=== PATIENT | female | born 1960 | race Caucasian/White ===

== ENCOUNTER 2019-03-09 06:49 | Inpatient (IN) ==
--- NOTE | 2019-03-09 07:19 | Emergency Department Note ---
Disposition Clinical Impression: Pyelonephritis, Elevated troponin, EVENS (acute kidney injury) Disposition: Admitted As Inpatient Condition: Good Time of Disposition: 09:48 General Adult HPI - General Chief complaint: ED Weakness Stated complaint: Leg Weakness Time Seen by Provider: 03/09/19 06:52 Source: EMS Limitations: no limitations Nursing Notes Reviewed: Yes Vital Signs Reviewed: Yes - History of Present Illness HPI Narrative: 58 year old female with a history of diabetes presents with right leg pain and weakness since yesterday. Patient stated her left arm also felt pain. Patient's stated patient was sitting on the floor this morning. Patient stated she slid to the floor from toilet. Pt denied hit her head. No LOC. Patient stated she felt too weak to stand up. Pt had lower back surgery. Pt denied incontinency of urinating or marla movement. Patient has a history of diabetes. She is on insulin. Patient stated that she has not checked her blood sugar for a while. Onset (ago): day(s) (1) Location: lower extremity Pain Scale: 8 - Related Data Home Medications Medication Instructions Recorded Confirmed Albuterol Sulfate [Albuterol 90 mcg IH Q4HR PRN 04/19/15 01/15/16 Inhaler] Ascorbic Acid [Vitamin C] 500 mg PO BID 04/19/15 03/09/19 Atorvastatin [Lipitor] 80 mg PO DAILY 04/19/15 01/15/16 Benztropine [Cogentin] 1 mg PO BID 04/19/15 03/09/19 Clopidogrel [Plavix] 75 mg PO DAILY 04/19/15 04/19/15 Ergocalciferol (VITAMIN D2) 50,000 unit PO 2XW 04/19/15 01/15/16 [Vitamin D2 (50,000 UNIT)] Escitalopram [Lexapro] 30 mg PO DAILY 04/19/15 03/09/19 Fenofibrate 145 mg PO DAILY 04/19/15 01/15/16 Ferrous Sulfate 325 mg PO BID 04/19/15 03/09/19 Haloperidol Decanoate [Haldol] 50 mg IJ Q14D 04/19/15 01/15/16 LORazepam [Ativan] 1 mg PO TID 04/19/15 01/15/16 Metformin HCl [Glucophage] 1,000 mg PO BID 04/19/15 03/09/19 Omeprazole [PriLOSEC] 20 mg PO DAILY 04/19/15 03/09/19 Pioglitazone HCl [Actos] 30 mg PO DAILY 04/19/15 01/15/16 Propranolol [Inderal] 20 mg PO TID 04/19/15 03/09/19 Quetiapine Fumarate [Seroquel] 100 mg PO HS 04/19/15 01/15/16 Previous Rx's Medication Instructions Recorded Aspirin Enteric Coated [Aspirin EC] 325 mg PO DAILY #20 tablet.dr 04/18/15 Furosemide [Lasix] 20 mg PO DAILY #3 tablet 11/18/15 Gabapentin [Neurontin] 300 mg PO BID #60 capsule 01/18/16 LORazepam [Ativan] 1 mg PO TID #30 tablet 01/18/16 Melatonin 9 mg PO HS tablet 01/18/16 OxyCODONE Immed Rel [Roxicodone 5 5 mg PO Q6HR PRN #30 tablet 01/18/16 MG] Allergies Allergy/AdvReac Type Severity Reaction Status Date / Time codeine AdvReac CONVULSIONS Verified 01/16/16 11:06 Constitutional: Denies: fever, chills Eyes: Denies: eye pain ENT ED: Denies: ear pain Cardiovascular: Denies: chest pain Respiratory: Denies: cough Gastrointestinal: Denies: abdominal pain, nausea, vomiting Genitourinary: Denies: urgency, dysuria, frequency Musculoskeletal: Reports: back pain Integumentary: Denies: rash Neurological: Denies: headache Psychiatric: Denies: anxiety Endocrine: Denies: fatigue Hematological/Lymphatic: Denies: easy bleeding Allergic/Immunologic: Denies: facial swelling Past Medical History - Past Medical History Medical history: Reports: diabetes Surgical history: Reports: cholecystectomy, hysterectomy, other Psychiatric history: Reports: anxiety, bipolar, depression TRUCK GUARD history: Reports: no TRUCK GUARD history - Social History Smoking Status: Current every day smoker Smokeless Tobacco Status: No Alcohol use: Reports: none Drug use: Reports: none Physical Exam - General General appearance: alert, in no apparent distress - Head Head exam: atraumatic, normocephalic - Eye Eye exam: Present: normal appearance - ENT ENT exam: normal exam - Neck Neck exam: Present: normal inspection - Chest Chest inspection: Present: normal inspection - Respiratory Respiratory exam: Present: normal lung sounds bilaterally - Cardiovascular Cardiovascular exam: Present: tachycardia - Abdominal Exam Abdominal exam: Present: soft, Non-Tender - Extremities Exam Extremities exam: Present: normal inspection, full ROM. Absent: tenderness - Back Exam Back exam: Present: normal inspection, full ROM, tenderness (Lumbar spine tender to palpation) - Neurological Exam Neurological exam: Present: alert, oriented X3, CN II-XII intact. Absent: motor sensory deficit - Psychiatric Psychiatric exam: Present: normal affect - Skin Skin exam: Present: warm, intact Course Vital Signs Temperature 98.7 F 03/09/19 06:52 Pulse Rate 100 03/09/19 06:52 Respiratory Rate 20 03/09/19 06:52 Blood Pressure 112/60 03/09/19 06:52 O2 Sat by Pulse Oximetry 93 03/09/19 06:52 Temperature 98.7 F 03/09/19 06:52 Pulse Rate 90 03/09/19 09:30 Respiratory Rate 18 03/09/19 10:27 Blood Pressure 118/67 03/09/19 10:27 O2 Sat by Pulse Oximetry 93 03/09/19 09:30 Oxygen Delivery Oxygen Delivery Room Air Medical Decision Making - [facility] Narrative Medical decision making narrative: 58 year old female presents generalized weakness, right lower leg pain and weakness, left arm pain. Patient slid from toilet to the floor this morning. No chest pain or shortness of breath. Physical exam: Patient seems fatigue, afebrile, tachycardia, abdomen soft no tender to palpation, bilateral lungs clear, lumbar spine tender to palpation. No focal neurology deficit. Head CT negative. Chest x-ray negative. Labs: White cell 15 elevated, creatinine 2.7 elevated, troponin 0.[address] elevation UA: Large amount of leukocyte and blood. 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 Impression : Pylonephritis , AK eye, elevated troponin. Dr. Hong spoke with urologist. Patient will be admitted to hospital with urology co nsult. Rocephin and IV fluids started in ED. - Lab Data Lab results reviewed: Yes I reviewed the patient's lab results. Result diagrams: 03/09/19 07:12 03/09/19 07:12 Lab Results 03/09/19 03/09/19 03/09/19 Range/Units 07:12 07:12 07:12 WBC 15.5 H (4.3-11.1) K/mcL RBC 3.67 L (3.82-4.97) M/mcL Hgb 10.9 L (11.5-15.4) g/dL Hct 31.7 L (35.3-44.9) % MCV 86.4 (83.0-100.0) fL MCH 29.7 (28.0-33.3) pg MCHC 34.4 (31.6-35.5) g/dL RDW 13.5 (11.5-14.5) % Plt Count 149 (140-400) K/mcL MPV 11.4 (9.4-12.4) fL Immature Gran % 1.3 (0-4) % Seg Neutrophils % 87.8 % Lymphocytes % 3.5 % Monocytes % 7.1 % Eosinophils % 0.1 % Basophils % 0.2 % Neutrophils # 13.6 H (1.6-8.9) K/mcL Lymphocytes # 0.6 (0.6-4.6) K/mcL Monocytes # 1.1 (0.0-1.3) K/mcL Eosinophils # 0.0 (0.0-0.6) K/mcL Basophils # 0.0 (0.0-0.2) K/mcL Sodium 127 L (136-145) mEq/L Potassium 3.3 L (3.5-5.1) mEq/L Chloride 91 L (98-107) mEq/L Carbon Dioxide 22 L (23-29) mEq/L BUN 72 H (8-23) mg/dL Creatinine 2.73 H (0.60-1.20) mg/dL Est GFR ( Amer) 22 L (> 60) Est GFR (Non-Af Amer) 18 L (> 60) BUN/Creatinine Ratio 26 (6-26) Glucose 274 H (70-105) mg/dL Calculated Osmolality 295 (280-300) Lactic Acid (0.5-2.2) mmol/L Calcium 8.8 (8.6-10.3) mg/dL Total Bilirubin 0.9 (0.3-1.0) mg/dL AST 26 (13-39) Units/L ALT 27 (7-52) Units/L Alkaline Phosphatase 118 H (34-104) Units/L Troponin I 0.09 H* (< 0.04) ng/mL B-Natriuretic Peptide 129 H (Less than 100) pg/mL Serum Total Protein 7.2 (6.4-8.9) g/dL Albumin 3.5 (3.5-5.7) g/dL Globulin 3.7 H (2.4-3.5) g/dL Albumin/Globulin Ratio 0.9 L (1.1-2.2) Urine Color (Yellow) Urine Clarity (Clear) Urine pH (5.0-8.0) pH Units Ur Specific [place] (1.010-1.025) Urine Protein (Neg-Trace) mg/dL Urine Glucose (UA) (Normal) mg/dL Urine Ketones (Negative) mg/dL Urine Blood (Negative) Urine Nitrite (Negative) Urine Bilirubin (Negative) Urine Urobilinogen (Normal) mg/dL Ur Leukocyte Esterase (Negative) Urine Microscopic RBC (0-3) per hpf Urine Microscopic WBC (0-3) per hpf Ur Squamous Epith Cells (None-Few) per lpf Urine Bacteria (None-Few) per hpf Hyaline Casts (None-Few) per lpf Urine Yeast (None Seen) per hpf Ur Culture Indicated? (NO) 03/09/19 03/09/19 Range/Units 07:35 08:14 WBC (4.3-11.1) K/mcL RBC (3.82-4.97) M/mcL Hgb (11.5-15.4) g/dL Hct (35.3-44.9) % MCV (83.0-100.0) fL MCH (28.0-33.3) pg MCHC (31.6-35.5) g/dL RDW (11.5-14.5) % Plt Count (140-400) K/mcL MPV (9.4-12.4) fL Immature Gran % (0-4) % Seg Neutrophils % % Lymphocytes % % Monocytes % % Eosinophils % % Basophils % % Neutrophils # (1.6-8.9) K/mcL Lymphocytes # (0.6-4.6) K/mcL Monocytes # (0.0-1.3) K/mcL Eosinophils # (0.0-0.6) K/mcL Basophils # (0.0-0.2) K/mcL Sodium (136-145) mEq/L Potassium (3.5-5.1) mEq/L Chloride (98-107) mEq/L Carbon Dioxide (23-29) mEq/L BUN (8-23) mg/dL Creatinine (0.60-1.20) mg/dL Est GFR ( Amer) (> 60) Est GFR (Non-Af Amer) (> 60) BUN/Creatinine Ratio (6-26) Glucose (70-105) mg/dL Calculated Osmolality (280-300) Lactic Acid 1.0 (0.5-2.2) mmol/L Calcium (8.6-10.3) mg/dL Total Bilirubin (0.3-1.0) mg/dL AST (13-39) Units/L ALT (7-52) Units/L Alkaline Phosphatase (34-104) Units/L Troponin I (< 0.04) ng/mL B-Natriuretic Peptide (Less than 100) pg/mL Serum Total Protein (6.4-8.9) g/dL Albumin (3.5-5.7) g/dL Globulin (2.4-3.5) g/dL Albumin/Globulin Ratio (1.1-2.2) Urine Color Yellow (Yellow) Urine Clarity Turbid A (Clear) Urine pH 5.5 (5.0-8.0) pH Units Ur Specific [place] 1.018 (1.010-1.025) Urine Protein 100 H (Neg-Trace) mg/dL Urine Glucose (UA) Normal (Normal) mg/dL Urine Ketones Negative (Negative) mg/dL Urine Blood Moderate H (Negative) Urine Nitrite Negative (Negative) Urine Bilirubin Negative (Negative) Urine Urobilinogen Normal (Normal) mg/dL Ur Leukocyte Esterase Large H (Negative) Urine Microscopic RBC 0-3 (0-3) per hpf Urine Microscopic WBC TNTC H (0-3) per hpf Ur Squamous Epith Cells Many H (None-Few) per lpf Urine Bacteria Many H (None-Few) per hpf Hyaline Casts Few (None-Few) per lpf Urine Yeast Few H (None Seen) per hpf Ur Culture Indicated? YES A (NO) - Radiology Data Radiology results reviewed: Yes I reviewed the patient's radiology results. EXAMINATION: CT OF THE ABDOMEN AND PELVIS WITHOUT CONTRAST 03/09/2019 8:48 am TECHNIQUE: CT of the abdomen and pelvis was performed without the administration of intravenous contrast. Multiplanar reformatted images are provided for review. Dose modulation, iterative reconstruction, and/or weight based adjustment of the mA/kV was utilized to reduce the radiation dose to as low as reasonably achievable. COMPARISON: 05/08/2008 HISTORY: ORDERING SYSTEM PROVIDED HISTORY: hematuria FINDINGS: Lower Chest: Unremarkable Organs: Liver, pancreas, and spleen are unremarkable. Cholecystectomy. GI/Bowel: No bowel obstruction. Appendix is normal. Pelvis: No bladder stone. No pelvic fluid collection. No adenopathy. Peritoneum/Retroperitoneum: No abdominal aortic aneurysm. Adrenal glands unremarkable. Perinephric stranding bilaterally, more prominent on the right. No ureteral stone. Mild inflammation surrounding the ureters bilaterally. Mild right hydronephrosis with somewhat abrupt narrowing at the UPJ. 2.0 x 1.8 cm right renal cyst. Bones/Soft Tissues: No acute bony abnormality. CT/CT abd pelvis wo no iv no oral IMPRESSION: No renal or ureteral stone. Mild perinephric stranding surrounding the kidneys bilaterally more prominent on the right as well as some inflammation surrounding the ureters bilaterally. Mild right hydronephrosis with up propped tapering at the right UPJ concerning for underlying stricture. This is new since the previous exam. Consider further evaluation with CT urogram. D/ / Marilynn Hdez MD / Marilynn Hdez MD Interpreting Provider: Marilynn Hdez MD R #: [id number] CT/CT head/brain wo con IMPRESSION: No acute intracranial abnormality. D/ / Marilynn Hdez MD / Marilynn Hdez MD Interpreting Provider: Marilynn Hdez MD INGS: Lungs are clear. No pleural effusion or pneumothorax. Normal cardiomediastinal silhouette and pulmonary vascularity. No acute osseous abnormality. XR/XR chest 1V portable IMPRESSION: No acute cardiopulmonary disease. D/ / Halle Oviedo MD / Halle Oviedo MD Interpreting Provider: Halle Oviedo MD
[2019-03-09 07:28] LABS: Basophils % 0.2 %; Eosinophils % 0.1 %; Hematocrit 31.7 % (35.3-44.9); Hemoglobin 10.9 g/dL (11.5-15.4); Immature Granulocytes % 1.3 % (0-4); Lymphocytes # 0.6 K/mcL (0.6-4.6); Lymphocytes % 3.5 %; Mean Corpuscular HGB Conc 34.4 g/dL (31.6-35.5); Mean Corpuscular Hemoglobin 29.7 pg (28.0-33.3); Mean Corpuscular Volume 86.4 fL (83.0-100.0); Mean Platelet Volume 11.4 fL (9.4-12.4); Monocytes # 1.1 K/mcL (0.0-1.3); Monocytes % 7.1 %; Neutrophils # 13.6 K/mcL (1.6-8.9); Platelet Count 149 K/mcL (140-400); Red Blood Count 3.67 M/mcL (3.82-4.97); Red Cell Distribution Width 13.5 % (11.5-14.5); Segmented Neutrophils % 87.8 %; White Blood Count 15.5 K/mcL (4.3-11.1)
[2019-03-09 07:47] LABS: Bilirubin,Urine Negative (Negative); Blood,Urine Moderate (Negative); Clarity,Urine Turbid (Clear); Color,Urine Yellow (Yellow); Glucose,Urine (UA) Normal (Normal); Ketones,Urine Negative (Negative); Leukocyte Esterase,Urine Large (Negative); Nitrite,Urine Negative (Negative); PH,Urine 5.5 pH Units (5.0-8.0); Protein,Urine 100 mg/dL (Neg-Trace); Specific Gravity,Urine 1.018 (1.010-1.025); Urobilinogen,Urine Normal (Normal)
[2019-03-09 07:49] LABS: Bacteria,Urine Many per hpf (None-Few); Hyaline Casts,Urine Few per lpf (None-Few); RBC,Urine 0-3 per hpf (0-3); Squamous Epithelial Cell,Urine Many per lpf (None-Few); WBC,Urine TNTC per hpf (0-3)
[2019-03-09 07:55] LABS: Albumin 3.5 g/dL (3.5-5.7); Albumin/Globulin Ratio 0.9 (1.1-2.2); Bilirubin,Total 0.9 mg/dL (0.3-1.0); Calcium 8.8 mg/dL (8.6-10.3); Globulin 3.7 g/dL (2.4-3.5); Potassium 3.3 mEq/L (3.5-5.1); Total Protein 7.2 g/dL (6.4-8.9); Troponin I 0.09 ng/mL (< 0.04)
[2019-03-09] MEDS ORDERED: 0.9 % Sodium Chloride 500 ML IVC ONE ×2 (07:57→09:11)
[2019-03-09] MEDS ORDERED: cefTRIAXone 1,000 MG in 0.9 % Sodium Chloride Mini Bag 100 ML IVPB ONE (08:04)
[2019-03-09] MEDS ORDERED: Aspirin 325 MG TABLET PO ONE (08:04)
[2019-03-09 08:06] LABS: Yeast,Urine Few per hpf (None Seen)
--- NOTE | 2019-03-09 09:19 | Emergency Department Note ---
Disposition Clinical Impression: Pyelonephritis, Elevated troponin, [place]ENS (acute kidney injury) Disposition: Admitted As Inpatient Condition: Good Referrals: Reynold Hamlin MD [Primary Care Provider] - Forms: ED Satisfaction Letter Time of Disposition: 09:17 General Adult HPI - General Chief complaint: ED Weakness Stated complaint: Leg Weakness Time Seen by Provider: 03/09/19 06:52 Source: EMS Limitations: no limitations - History of Present Illness Location: lower extremity Pain Scale: 8 - Related Data Home Medications Medication Instructions Recorded Confirmed Albuterol Sulfate [Albuterol 90 mcg IH Q4HR PRN 04/19/15 01/15/16 Inhaler] Ascorbic Acid [Vitamin C] 500 mg PO BID 04/19/15 03/09/19 Atorvastatin [Lipitor] 80 mg PO DAILY 04/19/15 01/15/16 Benztropine [Cogentin] 1 mg PO BID 04/19/15 03/09/19 Clopidogrel [Plavix] 75 mg PO DAILY 04/19/15 04/19/15 Ergocalciferol (VITAMIN D2) 50,000 unit PO 2XW 04/19/15 01/15/16 [Vitamin D2 (50,000 UNIT)] Escitalopram [Lexapro] 30 mg PO DAILY 04/19/15 03/09/19 Fenofibrate 145 mg PO DAILY 04/19/15 01/15/16 Ferrous Sulfate 325 mg PO BID 04/19/15 03/09/19 Haloperidol Decanoate [Haldol] 50 mg IJ Q14D 04/19/15 01/15/16 LORazepam [Ativan] 1 mg PO TID 04/19/15 01/15/16 Metformin HCl [Glucophage] 1,000 mg PO BID 04/19/15 03/09/19 Omeprazole [PriLOSEC] 20 mg PO DAILY 04/19/15 03/09/19 Pioglitazone HCl [Actos] 30 mg PO DAILY 04/19/15 01/15/16 Propranolol [Inderal] 20 mg PO TID 04/19/15 03/09/19 Quetiapine Fumarate [Seroquel] 100 mg PO HS 04/19/15 01/15/16 Previous Rx's Medication Instructions Recorded Aspirin Enteric Coated [Aspirin EC] 325 mg PO DAILY #20 tablet. 04/18/15 Furosemide [Lasix] 20 mg PO DAILY #3 tablet 11/18/15 Gabapentin [Neurontin] 300 mg PO BID #60 capsule 01/18/16 LORazepam [Ativan] 1 mg PO TID #30 tablet 01/18/16 Melatonin 9 mg PO HS tablet 01/18/16 OxyCODONE Immed Rel [Roxicodone 5 5 mg PO Q6HR PRN #30 tablet 01/18/16 MG] Allergies Allergy/AdvReac Type Severity Reaction Status Date / Time codeine AdvReac CONVULSIONS Verified 01/16/16 11:06 Past Medical History - Past Medical History Medical history: Reports: diabetes Surgical history: Reports: cholecystectomy, hysterectomy, other Psychiatric history: Reports: anxiety, bipolar, depression LEAD APPLICATION ARCHITECT history: Reports: no LEAD APPLICATION ARCHITECT history - Social History Smoking Status: Current every day smoker Smokeless Tobacco Status: No Alcohol use: Reports: none Drug use: Reports: none Physical Exam - General Limitations: no limitations General appearance: alert, in no apparent distress Course - Consultations Consultation #1: discussed case with urology and Dr. Rasmussen will see in consult. Time: 09:16 Consultation #2: discussed case with Dr. Del Rio and he will accept to medicine service. Time: 09:59 Vital Signs Temperature 98.7 F 03/09/19 06:52 Pulse Rate 100 03/09/19 06:52 Respiratory Rate 20 03/09/19 06:52 Blood Pressure 112/60 03/09/19 06:52 O2 Sat by Pulse Oximetry 93 03/09/19 06:52 Temperature 98.7 F 03/09/19 06:52 Pulse Rate 90 03/09/19 09:30 Respiratory Rate 16 03/09/19 09:30 Blood Pressure 119/76 03/09/19 09:30 O2 Sat by Pulse Oximetry 93 03/09/19 09:30 Oxygen Delivery Oxygen Delivery Room Air Medical Decision Making - Lab Data Result diagrams: 03/09/19 07:12 03/09/19 07:12 Lab Results 03/09/19 03/09/19 03/09/19 Range/Units 07:12 07:12 07:12 WBC 15.5 H (4.3-11.1) K/mcL RBC 3.67 L (3.82-4.97) M/mcL Hgb 10.9 L (11.5-15.4) g/dL Hct 31.7 L (35.3-44.9) % MCV 86.4 (83.0-100.0) fL MCH 29.7 (28.0-33.3) pg MCHC 34.4 (31.6-35.5) g/dL RDW 13.5 (11.5-14.5) % Plt Count 149 (140-400) K/mcL MPV 11.4 (9.4-12.4) fL Immature Gran % 1.3 (0-4) % Seg Neutrophils % 87.8 % Lymphocytes % 3.5 % Monocytes % 7.1 % Eosinophils % 0.1 % Basophils % 0.2 % Neutrophils # 13.6 H (1.6-8.9) K/mcL Lymphocytes # 0.6 (0.6-4.6) K/mcL Monocytes # 1.1 (0.0-1.3) K/mcL Eosinophils # 0.0 (0.0-0.6) K/mcL Basophils # 0.0 (0.0-0.2) K/mcL Sodium 127 L (136-145) mEq/L Potassium 3.3 L (3.5-5.1) mEq/L Chloride 91 L (98-107) mEq/L Carbon Dioxide 22 L (23-29) mEq/L BUN 72 H (8-23) mg/dL Creatinine 2.73 H (0.60-1.20) mg/dL Est GFR ( Amer) 22 L (> 60) Est GFR (Non-Af Amer) 18 L (> 60) BUN/Creatinine Ratio 26 (6-26) Glucose 274 H (70-105) mg/dL Calculated Osmolality 295 (280-300) Lactic Acid (0.5-2.2) mmol/L Calcium 8.8 (8.6-10.3) mg/dL Total Bilirubin 0.9 (0.3-1.0) mg/dL AST 26 (13-39) Units/L ALT 27 (7-52) Units/L Alkaline Phosphatase 118 H (34-104) Units/L Troponin I 0.09 H* (< 0.04) ng/mL B-Natriuretic Peptide 129 H (Less than 100) pg/mL Serum Total Protein 7.2 (6.4-8.9) g/dL Albumin 3.5 (3.5-5.7) g/dL Globulin 3.7 H (2.4-3.5) g/dL Albumin/Globulin Ratio 0.9 L (1.1-2.2) Urine Color (Yellow) Urine Clarity (Clear) Urine pH (5.0-8.0) pH Units Ur Specific [place] (1.010-1.025) Urine Protein (Neg-Trace) mg/dL Urine Glucose (UA) (Normal) mg/dL Urine Ketones (Negative) mg/dL Urine Blood (Negative) Urine Nitrite (Negative) Urine Bilirubin (Negative) Urine Urobilinogen (Normal) mg/dL Ur Leukocyte Esterase (Negative) Urine Microscopic RBC (0-3) per hpf Urine Microscopic WBC (0-3) per hpf Ur Squamous Epith Cells (None-Few) per lpf Urine Bacteria (None-Few) per hpf Hyaline Casts (None-Few) per lpf Urine Yeast (None Seen) per hpf Ur Culture Indicated? (NO) 03/09/19 03/09/19 Range/Units 07:35 08:14 WBC (4.3-11.1) K/mcL RBC (3.82-4.97) M/mcL Hgb (11.5-15.4) g/dL Hct (35.3-44.9) % MCV (83.0-100.0) fL MCH (28.0-33.3) pg MCHC (31.6-35.5) g/dL RDW (11.5-14.5) % Plt Count (140-400) K/mcL MPV (9.4-12.4) fL Immature Gran % (0-4) % Seg Neutrophils % % Lymphocytes % % Monocytes % % Eosinophils % % Basophils % % Neutrophils # (1.6-8.9) K/mcL Lymphocytes # (0.6-4.6) K/mcL Monocytes # (0.0-1.3) K/mcL Eosinophils # (0.0-0.6) K/mcL Basophils # (0.0-0.2) K/mcL Sodium (136-145) mEq/L Potassium (3.5-5.1) mEq/L Chloride (98-107) mEq/L Carbon Dioxide (23-29) mEq/L BUN (8-23) mg/dL Creatinine (0.60-1.20) mg/dL Est GFR ( Amer) (> 60) Est GFR (Non-Af Amer) (> 60) BUN/Creatinine Ratio (6-26) Glucose (70-105) mg/dL Calculated Osmolality (280-300) Lactic Acid 1.0 (0.5-2.2) mmol/L Calcium (8.6-10.3) mg/dL Total Bilirubin (0.3-1.0) mg/dL AST (13-39) Units/L ALT (7-52) Units/L Alkaline Phosphatase (34-104) Units/L Troponin I (< 0.04) ng/mL B-Natriuretic Peptide (Less than 100) pg/mL Serum Total Protein (6.4-8.9) g/dL Albumin (3.5-5.7) g/dL Globulin (2.4-3.5) g/dL Albumin/Globulin Ratio (1.1-2.2) Urine Color Yellow (Yellow) Urine Clarity Turbid A (Clear) Urine pH 5.5 (5.0-8.0) pH Units Ur Specific [place] 1.018 (1.010-1.025) Urine Protein 100 H (Neg-Trace) mg/dL Urine Glucose (UA) Normal (Normal) mg/dL Urine Ketones Negative (Negative) mg/dL Urine Blood Moderate H (Negative) Urine Nitrite Negative (Negative) Urine Bilirubin Negative (Negative) Urine Urobilinogen Normal (Normal) mg/dL Ur Leukocyte Esterase Large H (Negative) Urine Microscopic RBC 0-3 (0-3) per hpf Urine Microscopic WBC TNTC H (0-3) per hpf Ur Squamous Epith Cells Many H (None-Few) per lpf Urine Bacteria Many H (None-Few) per hpf Hyaline Casts Few (None-Few) per lpf Urine Yeast Few H (None Seen) per hpf Ur Culture Indicated? YES A (NO) Attestation Statement - Attestation Attestation: I reviewed the residents documentation and agree with the PA's assessment and plan of care. I have personally had face to face time with the patient. (Brief History, Brief Exam, and MDM) I personally supervised and was present for the rangel/critical portions of the following procedures completed by the resident: (add procedures performed here). 58 year old female presents to the ED with complaints of weakness when she got up this morning. It appears that she has a UTI and it extends into the pyelonephritis bilaterally worse on the right with UPJ strictures and a new [place] and elevated troponin. She othewrise denies chest pain and exertional dyspnea and does not have any new ischemic changes on eKG. Admit to medicine with urology consult
[2019-03-09] MEDS ORDERED: Naloxone 0.4 MG/ML INJ IVP PRN ×3 (09:53→16:35)
[2019-03-09] MEDS ORDERED: *HR* Promethazine 25 MG/ML VIAL IVP PRN (09:55)
[2019-03-09] MEDS ORDERED: Ondansetron ODT 4 MG TAB.RAPDIS SL PRN (09:55)
[2019-03-09] MEDS ORDERED: Ringers Solution, Lactated 1,000 ML IVC ONE ×2 (09:58→13:04)
[2019-03-09] MEDS ORDERED: *HR* OxyCODONE Immed Rel 5 MG TABLET PO PRN (09:58)
--- NOTE | 2019-03-09 11:08 | Internal Med History&Physical ---
Date of Encounter: 03/09/19 Time of Encounter: 10:59 Internal Medicine - H&P: HPI Chief complaint: Weakness Admitted From: Home Plans for Post Hospital Care: Home History of present illness: Ms. Barrientos is a 58 year old female with history of obesity, NIDDM Type II, HFpEF, and Bipolar disorder presents with lower extremity weakness. Patient says that for the last few days she has had generalized weakness and malaise. Says this got acutely worse yesterday and could barely walk to the bathroom. Says that no focal deficits but just hard to support herself because of generalized weakness and fatigue. Denies numbness or tingling. Was up to the bathroom and slouched over to the floor, prompting her to call EMS. Patient also experiencing urinary frequency but denies dysuria or hematuria. Denies abdominal pain, flank pain, nausea, or vomiting. Does have a cough but denies sputum production. Feels that she is dehydrated. Very little oral intake. Denies lightheadedness or dizziness. Past Med Surg Social Fam HX - Past Medical History Medical history: diabetes Additional medical history: HEART CATH. STRESS TEST. DM. SMOKER. TACHYCARDIA. FIBROMYALGIA. GERD. BIPOLAR. HTN. ARTHRITIS. DEPRESSION. ANXIETY Psychiatric history: anxiety, bipolar, depression - Past Surgical History Surgical History: cholecystectomy, hysterectomy, other Additional surgical history: EGD. COLONOSCOPY. GALLBLADDER. HYSTERECTOMY. BACK FUSION (LUMBAR). HEART CATH. CYST TAKEN OFF BACK - Social History Smoking Status: Current every day smoker Smokeless Tobacco Status: No Alcohol use: none Drug use: none Internal Medicine - H&P: Meds Aspirin Enteric Coated [Aspirin EC] 325 mg PO DAILY #20 tablet. 04/18/15 [Rx] Albuterol Sulfate [Albuterol Inhaler] 90 mcg IH Q4HR PRN 04/19/15 [History] Ascorbic Acid [Vitamin C] 500 mg PO BID 04/19/15 [History] Atorvastatin [Lipitor] 80 mg PO DAILY 04/19/15 [History] Benztropine [Cogentin] 1 mg PO BID 04/19/15 [History] Clopidogrel [Plavix] 75 mg PO DAILY 04/19/15 [History] Ergocalciferol (VITAMIN D2) [Vitamin D2 (50,000 UNIT)] 50,000 unit PO 2XW 04/19/15 [History] Escitalopram [Lexapro] 30 mg PO DAILY 04/19/15 [History] Fenofibrate 145 mg PO DAILY 04/19/15 [History] Ferrous Sulfate 325 mg PO BID 04/19/15 [History] Haloperidol Decanoate [Haldol] 50 mg IJ Q14D 04/19/15 [History] LORazepam [Ativan] 1 mg PO TID 04/19/15 [History] Metformin HCl [Glucophage] 1,000 mg PO BID 04/19/15 [History] Omeprazole [PriLOSEC] 20 mg PO DAILY 04/19/15 [History] Pioglitazone HCl [Actos] 30 mg PO DAILY 04/19/15 [History] Propranolol [Inderal] 20 mg PO TID 04/19/15 [History] Quetiapine Fumarate [Seroquel] 100 mg PO HS 04/19/15 [History] Furosemide [Lasix] 20 mg PO DAILY #3 tablet 11/18/15 [Rx] Gabapentin [Neurontin] 300 mg PO BID #60 capsule 01/18/16 [Rx] LORazepam [Ativan] 1 mg PO TID #30 tablet 01/18/16 [Rx] Melatonin 9 mg PO HS tablet 01/18/16 [Rx] OxyCODONE Immed Rel [Roxicodone 5 MG] 5 mg PO Q6HR PRN #30 tablet 01/18/16 [Rx] Allergy/AdvReac Type Severity Reaction Status Date / Time codeine AdvReac CONVULSIONS Verified 01/16/16 11:06 Review of systems: General: Fevers / Chills / Weight loss / Night sweats Eyes: Blurry Vision / Change in Vision HENT: Ear Pain / Ear Drainage / Rhinorrhea / Throat Pain / Lymphadenopathy Cardiovascular: Chest Pain / Palpatations / Orthopnea / GONZALEZ / Weight gain Lungs: Dyspnea / Wheezing / Cough / Sputum production / Pleurisy Abdomen: Abdomen pain / Abdominal distention / Nausea / Vomiting / Diarrhea / Const : Dysuria / Urinary Frequency / Urinary Urgency / Hematuria Extremities: LE edema / Ext pain / Ext erythema Skin: Rashes / Abrasions / Contusions Psych: Hallucinations / Anxiety / Depression Neuro: Weakness / Numbness / Tingling / Facial Droop / Dysphagia - Constitutional Vitals: Temp Pulse Resp BP Pulse Ox 98.7 F 90 18 118/67 93 03/09/19 06:52 03/09/19 09:30 03/09/19 10:27 03/09/19 10:27 03/09/19 09:30 Exam: General: Ill-appearing and in no acute distress HEENT: No erythema of posterior pharynx. No exudates. Lymphatics: No mandibular or cervical lymphadenopathy Cardiovascular: RRR. No murmurs. No chest wall tenderness. Lungs: Clear to auscelltation bilaterally. Regular chest rise. Abdomen: Non-tender. No rebound or gaurding. Nl bowel sounds. Extremities: No edema. 2+ pulses radial and pedal pulses Skin: No rahses, abrasions, or contusions. Nl cap refill. Psych: Nl attention. A&Ox3 Neuro: scientific research manager II-XII intact. 4/5 strength in BL LEs, 5/5 strength elsewhere. Sensation to light touch and pinprick intact. FNF and ROM intact. No PD. Internal Med - H&P Results - Labs CBC & Chem 7: 03/09/19 07:12 03/09/19 07:12 Labs: Short CBC 03/09/19 Range/Units 07:12 WBC 15.5 H (4.3-11.1) K/mcL Hgb 10.9 L (11.5-15.4) g/dL Hct 31.7 L (35.3-44.9) % Plt Count 149 (140-400) K/mcL Neutrophils # 13.6 H (1.6-8.9) K/mcL BMP 03/09/19 07:12 Sodium 127 L Potassium 3.3 L Chloride 91 L Carbon Dioxide 22 L BUN 72 H Creatinine 2.73 H Glucose 274 H Calcium 8.8 Cardiac Enzymes 03/09/19 Range/Units 07:12 Troponin I 0.09 H* (< 0.04) ng/mL Liver Function 03/09/19 Range/Units 07:12 Total Bilirubin 0.9 (0.3-1.0) mg/dL AST 26 (13-39) Units/L ALT 27 (7-52) Units/L Alkaline Phosphatase 118 H (34-104) Units/L Albumin 3.5 (3.5-5.7) g/dL Urine 03/09/19 Range/Units 07:35 Urine Color Yellow (Yellow) Urine Clarity Turbid A (Clear) Urine pH 5.5 (5.0-8.0) pH Units Ur Specific [place] 1.018 (1.010-1.025) Urine Protein 100 H (Neg-Trace) mg/dL Urine Glucose (UA) Normal (Normal) mg/dL - Impressions ITS Impressions Chest X-Ray 03/09/19 07:40 IMPRESSION: No acute cardiopulmonary disease. D/ / Halle Oviedo MD / Halle Dominique i, MD Interpreting Provider: Halle Oviedo MD Head CT 03/09/19 08:53 IMPRESSION: No acute intracranial abnormality. D/ / Marilynn Hdez MD / Marilynn Hdez MD Interpreting Provider: Marilynn Hdez MD Abdomen/Pelvis CT 03/09/19 08:55 IMPRESSION: No renal or ureteral stone. Mild perinephric stranding surrounding the kidneys bilaterally more prominent on the right as well as some inflammation surrounding the ureters bilaterally. Mild right hydronephrosis with up propped tapering at the right UPJ concerning for underlying stricture. This is new since the previous exam. Consider further evaluation with CT urogram. D/ / Marilynn Hdez MD / Marilynn Hdez MD Interpreting Provider: Marilynn Hdez MD - Assessment and Plan (1) Sepsis Current Visit: Yes Status: Acute Assessment and plan: Patient presents with generalized weakness in the setting of meeting sepsis criteria (WBC 15.5 and HR >90), generalized weakness on exam but no abdominal or CVA tenderness, UA with concern for infection, and CT with evidence of bilateral pyelonephritis and mild right hydronephrosis with tapering at the right UPJ concerning for underlying stricture. -Meets diagnostic criteria for bilateral pyelonephritis Initial concern for obstructive process given stricture, however, discussed with urology and believe this is probably chronic but will see patient Started on IVF and ceftriaxone in the ED and responding appropriately PLAN: - 30cc/kg IVF - Continue ceftriaxone - F/u blood and urine cultures - Urology to see patient and review imaging Qualifiers: Sepsis type: sepsis due to unspecified organism Sepsis acute organ dysfunction status: with acute organ dysfunction Severe sepsis acute organ dysfunction type: acute renal failure Acute renal failure type: with acute tubular necrosis Severe sepsis shock status: without septic shock Qualified Code(s): A41.9 - Sepsis, unspecified organism; R65.20 - Severe sepsis without septic shock; N17.0 - Acute kidney failure with tubular necrosis (2) Pyelonephritis Current Visit: Yes Status: Acute Assessment and plan: See above (3) Acute renal failure Current Visit: Yes Status: Acute Assessment and plan: Likely prerenal and intrarenal secondary to sepsis and acute pyelonephritis. Also concern for postobstructive process given structure but neurology believes this to be chronic. - IVF and treat infection - Urology consultation Qualifiers: Acute renal failure type: unspecified Qualified Code(s): N17.9 - Acute kidney failure, unspecified (4) NSTEMI (non-ST elevated myocardial infarction) Current Visit: Yes Status: Acute Assessment and plan: Likely demand ischemia in setting of pyelonephritis. Negative stress tests in 2015. - Trend trop - Will likely need repeat stress test on an outpatient basis (5) (HFpEF) heart failure with preserved ejection fraction Current Visit: Yes Status: Acute Assessment and plan: No echo on file but preserved EF evident on past stress test. - Hold Lasix in setting of acute renal failure Qualifiers: Heart failure chronicity: chronic Qualified Code(s): I50.32 - Chronic diastolic (congestive) heart failure (6) Bipolar 1 disorder Current Visit: No Status: Acute Assessment and plan: Continue home medications
[2019-03-09] MEDS ORDERED: Dextrose Gel 15 GM/37.5 ML TUBE PO PRN (13:23)
--- NOTE | 2019-03-09 15:30 | Urology - Consult Note ---
Date of Encounter: 03/09/19 Time of Encounter: 15:27 - Assessment and Plan (1) Bilateral hydronephrosis Current Visit: Yes Status: Acute Assessment and plan: Patient with mild bilateral hydronephrosis. I do not appreciate a significant UPJ obstruction. At this time would not recommend repeat imaging unless patient does not clinically improve. This is likely secondary to UTI with pyelonephritis. (2) [place] (acute kidney injury) Current Visit: Yes Status: Acute Assessment and plan: Patient serum creatinine markedly elevated above baseline. Unsure of etiology this time but could be related to dehydration. Continue with IV fluids and repeat serum creatinine tomorrow. If her serum fails to improve may need to perform cystoscopy and bilateral ureteral stent placement. (3) Pyelonephritis Current Visit: Yes Status: Acute Assessment and plan: Continue with broad-spectrum antimicrobial coverage until cultures return. We will continue to follow along closely. Urology CN:HPI Consult date: 03/09/19 Reason for consult Urology: Hydronephrosis Requesting physician: Magdiel Morales History of present illness: Mona is a 58-year-old female who presented to the emergency room secondary to overall weakness. Patient was found to have leukocytosis as well as elevated serum creatinine. CT scan was done which revealed bilateral mild hydronephrosis with changes consistent with bilateral pyelonephritis. Urinalysis was consistent with possible infection but was negative for nitrites. Patient was treated for recent UTI in January of this year. This was a finley sensitive Escherichia coli. She has had multiple separate UTIs over the past couple of years. Patient was scheduled to see me as an outpatient but failed to keep her appointment. Patient does admit to significant frequency. Past Med Surg Social Fam HX - Past Medical History Medical history: diabetes Additional medical history: HEART CATH. STRESS TEST. DM. SMOKER. TACHYCARDIA. FIBROMYALGIA. GERD. BIPOLAR. HTN. ARTHRITIS. DEPRESSION. ANXIETY Psychiatric history: anxiety, bipolar, depression - Past Surgical History Surgical History: cholecystectomy, hysterectomy, other Additional surgical history: EGD. COLONOSCOPY. GALLBLADDER. HYSTERECTOMY. BACK FUSION (LUMBAR). HEART CATH. CYST TAKEN OFF BACK - Social History Smoking Status: Current every day smoker Smokeless Tobacco Status: No Alcohol use: none Drug use: none - Family History Mother Name: Patient denies any family history of kidney stones. Medications and Allergies Aspirin Enteric Coated [Aspirin EC] 325 mg PO DAILY #20 tablet. 04/18/15 [Rx] Albuterol Sulfate [Albuterol Inhaler] 90 mcg IH Q4HR PRN 04/19/15 [History] Ascorbic Acid [Vitamin C] 500 mg PO BID 04/19/15 [History] Atorvastatin [Lipitor] 80 mg PO DAILY 04/19/15 [History] Benztropine [Cogentin] 1 mg PO BID 04/19/15 [History] Clopidogrel [Plavix] 75 mg PO DAILY 04/19/15 [History] Ergocalciferol (VITAMIN D2) [Vitamin D2 (50,000 UNIT)] 50,000 unit PO 2XW 04/19/15 [History] Escitalopram [Lexapro] 30 mg PO DAILY 04/19/15 [History] Fenofibrate 145 mg PO DAILY 04/19/15 [History] Ferrous Sulfate 325 mg PO BID 04/19/15 [History] Haloperidol Decanoate [Haldol] 50 mg IJ Q14D 04/19/15 [History] LORazepam [Ativan] 1 mg PO TID 04/19/15 [History] Metformin HCl [Glucophage] 1,000 mg PO BID 04/19/15 [History] Omeprazole [PriLOSEC] 20 mg PO DAILY 04/19/15 [History] Pioglitazone HCl [Actos] 30 mg PO DAILY 04/19/15 [History] Propranolol [Inderal] 20 mg PO TID 04/19/15 [History] Quetiapine Fumarate [Seroquel] 100 mg PO HS 04/19/15 [History] Furosemide [Lasix] 20 mg PO DAILY #3 tablet 11/18/15 [Rx] Gabapentin [Neurontin] 300 mg PO BID #60 capsule 01/18/16 [Rx] LORazepam [Ativan] 1 mg PO TID #30 tablet 01/18/16 [Rx] Melatonin 9 mg PO HS tablet 01/18/16 [Rx] OxyCODONE Immed Rel [Roxicodone 5 MG] 5 mg PO Q6HR PRN #30 tablet 01/18/16 [Rx] Allergy/AdvReac Type Severity Reaction Status Date / Time codeine AdvReac CONVULSIONS Verified 01/16/16 11:06 Review of Systems - Constitutional fatigue, malaise, no chills, no fever(s) - EENT Nose, mouth and throat: no dizziness - Cardiovascular no chest pain - Respiratory no cough, no dyspnea - Gastrointestinal no abdominal pain, no nausea, no vomiting - Genitourinary Genitourinary: as per HPI - Musculoskeletal no back pain - Integumentary no erythema, no swelling, no unusual bruising - Neurological no sensory deficit, no syncope - Psychiatric no anxiety, no confusion, no depression - Hematologic/Lymphatic no easy bruising, no lymphadenopathy - Allergic/Immunologic no wheezing Exam Initial Vital Signs Temp Pulse Resp BP Pulse Ox 98.7 F 100 20 112/60 93 03/09/19 06:52 03/09/19 06:52 03/09/19 06:52 03/09/19 06:52 03/09/19 06:52 General/Neuological: alert and oriented x 3 Eyes: normal pupils, non-icteric Neck: no lymphadenopathy noted, supple to touch Cardiovascular: RRR, no murmurs Respiratory: normal respiratory effort, clear bilaterally ABD: soft, nontender, no masses palpated, good bowel sounds Back: no pain on percussion bilaterally Skin: no rashes noted Musculoskeletal: normal gait, FROMx4 Urology Results - Labs 03/09/19 07:12 03/09/19 07:12 Abnormal lab results WBC 15.5 K/mcL (4.3-11.1) H 03/09/19 07:12 RBC 3.67 M/mcL (3.82-4.97) L 03/09/19 07:12 Hgb 10.9 g/dL (11.5-15.4) L 03/09/19 07:12 Hct 31.7 % (35.3-44.9) L 03/09/19 07:12 Neutrophils # 13.6 K/mcL (1.6-8.9) H 03/09/19 07:12 Sodium 127 mEq/L (136-145) L 03/09/19 07:12 Potassium 3.3 mEq/L (3.5-5.1) L 03/09/19 07:12 Chloride 91 mEq/L (98-107) L 03/09/19 07:12 Carbon Dioxide 22 mEq/L (23-29) L 03/09/19 07:12 BUN 72 mg/dL (8-23) H 03/09/19 07:12 Creatinine 2.73 mg/dL (0.60-1.20) H 03/09/19 07:12 Est GFR ( Amer) 22 (> 60) L 03/09/19 07:12 Est GFR (Non-Af Amer) 18 (> 60) L 03/09/19 07:12 Glucose 274 mg/dL (70-105) H 03/09/19 07:12 Alkaline Phosphatase 118 Units/L (34-104) H 03/09/19 07:12 Troponin I 0.09 ng/mL (< 0.04) H* 03/09/19 07:12 B-Natriuretic Peptide 129 pg/mL (Less than 100) H 03/09/19 07:12 Globulin 3.7 g/dL (2.4-3.5) H 03/09/19 07:12 Albumin/Globulin Ratio 0.9 (1.1-2.2) L 03/09/19 07:12 Urine Clarity Turbid (Clear) A 03/09/19 07:35 Urine Protein 100 mg/dL (Neg-Trace) H 03/09/19 07:35 Urine Blood Moderate (Negative) H 03/09/19 07:35 Ur Leukocyte Esterase Large (Negative) H 03/09/19 07:35 Urine Microscopic WBC TNTC per hpf (0-3) H 03/09/19 07:35 Ur Squamous Epith Cells Many per lpf (None-Few) H 03/09/19 07:35 Urine Bacteria Many per hpf (None-Few) H 03/09/19 07:35 Urine Yeast Few per hpf (None Seen) H 03/09/19 07:35 Ur Culture Indicated? YES (NO) A 03/09/19 07:35 Diabetes panel 03/09/19 Range/Units 07:12 Sodium 127 L (136-145) mEq/L Potassium 3.3 L (3.5-5.1) mEq/L Chloride 91 L (98-107) mEq/L Carbon Dioxide 22 L (23-29) mEq/L BUN 72 H (8-23) mg/dL Creatinine 2.73 H (0.60-1.20) mg/dL Glucose 274 H (70-105) mg/dL Calcium 8.8 (8.6-10.3) mg/dL AST 26 (13-39) Units/L ALT 27 (7-52) Units/L Alkaline Phosphatase 118 H (34-104) Units/L Albumin 3.5 (3.5-5.7) g/dL Calcium panel 03/09/19 Range/Units 07:12 Calcium 8.8 (8.6-10.3) mg/dL Albumin 3.5 (3.5-5.7) g/dL Pituitary panel 03/09/19 Range/Units 07:12 Sodium 127 L (136-145) mEq/L Potassium 3.3 L (3.5-5.1) mEq/L Chloride 91 L (98-107) mEq/L Carbon Dioxide 22 L (23-29) mEq/L BUN 72 H (8-23) mg/dL Creatinine 2.73 H (0.60-1.20) mg/dL Glucose 274 H (70-105) mg/dL Calcium 8.8 (8.6-10.3) mg/dL Adrenal panel 03/09/19 Range/Units 07:12 Sodium 127 L (136-145) mEq/L Potassium 3.3 L (3.5-5.1) mEq/L Chloride 91 L (98-107) mEq/L Carbon Dioxide 22 L (23-29) mEq/L BUN 72 H (8-23) mg/dL Creatinine 2.73 H (0.60-1.20) mg/dL Glucose 274 H (70-105) mg/dL Calcium 8.8 (8.6-10.3) mg/dL Total Bilirubin 0.9 (0.3-1.0) mg/dL AST 26 (13-39) Units/L ALT 27 (7-52) Units/L Alkaline Phosphatase 118 H (34-104) Units/L Albumin 3.5 (3.5-5.7) g/dL All other labs normal. - Imaging CT scan - abdomen: image reviewed CT scan - pelvis: image reviewed (CT scan was personally reviewed which reveals mild bilateral hydronephrosis. I do not appreciate a significant UPJ obstruction at this time.) Consult Discharge Plan - Plan Referrals: Reynold Hamlin MD [Primary Care Provider] -
[2019-03-09] MEDS: Insulin LISPRO 300 UNITS/3 ML VIAL SQ SCH ×3 (17:02→21:51)
[2019-03-09] MEDS: Nystatin POWDER 30 GM BOTTLE TP SCH ×2 (17:22→20:32)
[2019-03-09 21:54] LABS: Acinetobacter baumannii by PCR Not Detected (Not Detect); Candida albicans by PCR Not Detected (Not Detect); Candida krusei by PCR Not Detected (Not Detect); Enterobacter cloacae Cmplx PCR Not Detected (Not Detect); Enterococcus by PCR Not Detected (Not Detect); Escherichia coli by PCR DETECTED (Not Detect); Klebsiella oxytoca by PCR Not Detected (Not Detect); Klebsiella pneumoniae by PCR Not Detected (Not Detect); Proteus by PCR Not Detected (Not Detect); Pseudomonas aeruginosa by PCR Not Detected (Not Detect); Serratia marcescens by PCR Not Detected (Not Detect); Staphylococcus aureus by PCR Not Detected (Not Detect); Staphylococcus by PCR Not Detected (Not Detect); Streptococcus agalactiae(B)PCR Not Detected (Not Detect); Streptococcus by PCR Not Detected (Not Detect); Streptococcus pneumoniae PCR Not Detected (Not Detect); Streptococcus pyogenes (A) PCR Not Detected (Not Detect); blaKPC Carbapenem-Resist Gene Not Detected (Not Detect); mecA Methicillin-Resist Gene Not Detected (Not Detect); vanA/B Vancomycin-Resist Genes Not Detected (Not Detect)
[2019-03-09 21:55] LABS: Candida glabrata by PCR Not Detected (Not Detect); Candida parapsilosis by PCR Not Detected (Not Detect); Candida tropicalis by PCR Not Detected (Not Detect)
[2019-03-09] MEDS ORDERED: cefTRIAXone 2,000 MG in Water for inj. (sterile) 20 ML IVPB SCH (23:00)
[2019-03-10 04:38] LABS: Basophils % 0.1 %; Eosinophils # 0.1 K/mcL (0.0-0.6); Eosinophils % 0.5 %; Hemoglobin 10.1 g/dL (11.5-15.4); Immature Granulocytes % 4.8 % (0-4); Lymphocytes # 0.5 K/mcL (0.6-4.6); Lymphocytes % 4.5 %; Mean Corpuscular HGB Conc 32.6 g/dL (31.6-35.5); Mean Corpuscular Hemoglobin 29.2 pg (28.0-33.3); Mean Corpuscular Volume 89.6 fL (83.0-100.0); Mean Platelet Volume 11.5 fL (9.4-12.4); Monocytes # 1.1 K/mcL (0.0-1.3); Monocytes % 9.9 %; Neutrophils # 8.9 K/mcL (1.6-8.9); Platelet Count 134 K/mcL (140-400); Red Blood Count 3.46 M/mcL (3.82-4.97); Red Cell Distribution Width 13.7 % (11.5-14.5); Segmented Neutrophils % 80.2 %; White Blood Count 11.1 K/mcL (4.3-11.1)
[2019-03-10 04:55] LABS: Calcium 8.5 mg/dL (8.6-10.3)
--- NOTE | 2019-03-10 08:55 | Urology Progress Note ---
<Eva Isidro N - Last Filed: 03/10/19 08:52> Date of Encounter: 03/10/19 Time of Encounter: 08:00 - Assessment and Plan (1) [place] (acute kidney injury) Current Visit: Yes Status: Acute (2) Bilateral hydronephrosis Current Visit: Yes Status: Acute (3) Pyelonephritis Current Visit: Yes Status: Acute Assessment and plan: Patient is a 58-year-old female who presents with a history of bilateral pyelonephritis. Patient appears to be improving clinically. Vital signs are currently stable and afebrile. White blood cell count is reassuring, and serum creatinine is much improved to 1.74. Preliminary blood and urine cultures are positive for gram-negative rods. Patient had a pansensitive Escherichia coli urinary tract infection from 02/03/2019. She is currently receiving IV Rocephin. Progress Note Narrative: Patient seen and examined sitting upright in bed in no apparent distress. Patient reports feeling well with no new urologic concerns and states her appetite is returning. Patient believes she is emptying her bladder well without difficulty, and she denies any fever, chills, dysuria, gross hematuria or flank pain. Objective Initial Vital Signs Temp Pulse Resp BP Pulse Ox 98.7 F 100 20 112/60 93 03/09/19 06:52 03/09/19 06:52 03/09/19 06:52 03/09/19 06:52 03/09/19 06:52 - General physical appearance Present: no distress, no pain - Respiratory Present: normal expansion, normal respiratory effort - Abdomen Present: soft, non tender - Integumentary Present: no rash, no abnormal pigmentation - Musculoskeletal Present: normal posture - Psychiatric Present: oriented to time, oriented to person, oriented to place, speech is normal, memory intact - Labs 03/10/19 03:37 03/10/19 03:37 Diabetes panel 03/10/19 Range/Units 03:37 Sodium 130 L (136-145) mEq/L Potassium 3.0 L (3.5-5.1) mEq/L Chloride 96 L (98-107) mEq/L Carbon Dioxide 22 L (23-29) mEq/L BUN 51 H (8-23) mg/dL Creatinine 1.74 H (0.60-1.20) mg/dL Glucose 226 H (70-105) mg/dL Calcium 8.5 L (8.6-10.3) mg/dL Calcium panel 03/10/19 Range/Units 03:37 Calcium 8.5 L (8.6-10.3) mg/dL Pituitary panel 03/10/19 Range/Units 03:37 Sodium 130 L (136-145) mEq/L Potassium 3.0 L (3.5-5.1) mEq/L Chloride 96 L (98-107) mEq/L Carbon Dioxide 22 L (23-29) mEq/L BUN 51 H (8-23) mg/dL Creatinine 1.74 H (0.60-1.20) mg/dL Glucose 226 H (70-105) mg/dL Calcium 8.5 L (8.6-10.3) mg/dL Adrenal panel 03/10/19 Range/Units 03:37 Sodium 130 L (136-145) mEq/L Potassium 3.0 L (3.5-5.1) mEq/L Chloride 96 L (98-107) mEq/L Carbon Dioxide 22 L (23-29) mEq/L BUN 51 H (8-23) mg/dL Creatinine 1.74 H (0.60-1.20) mg/dL Glucose 226 H (70-105) mg/dL Calcium 8.5 L (8.6-10.3) mg/dL Consult Discharge Plan - Plan Referrals: Reynold Hamlin MD [Primary Care Provider] - <Peter Rasmussen - Last Filed: 03/10/19 16:16> Date of Encounter: 03/10/19 - Assessment and Plan (1) Bilateral hydronephrosis Current Visit: Yes Status: Acute (2) [place] (acute kidney injury) Current Visit: Yes Status: Acute (3) Pyelonephritis Current Visit: Yes Status: Acute Progress Note Narrative: Patient was seen and examined independently. I agree with the plan as written by Eva Isidro. At this point patient is feeling much better. Patient is on IV antibiotics for pyelonephritis. We will continue to follow at this time. Objective Initial Vital Signs Temp Pulse Resp BP Pulse Ox 98.7 F 100 20 112/60 93 03/09/19 06:52 03/09/19 06:52 03/09/19 06:52 03/09/19 06:52 03/09/19 06:52 - Labs 03/10/19 03:37 03/10/19 03:37 Diabetes panel 03/10/19 Range/Units 03:37 Sodium 130 L (136-145) mEq/L Potassium 3.0 L (3.5-5.1) mEq/L Chloride 96 L (98-107) mEq/L Carbon Dioxide 22 L (23-29) mEq/L BUN 51 H (8-23) mg/dL Creatinine 1.74 H (0.60-1.20) mg/dL Glucose 226 H (70-105) mg/dL Calcium 8.5 L (8.6-10.3) mg/dL Calcium panel 03/10/19 Range/Units 03:37 Calcium 8.5 L (8.6-10.3) mg/dL Pituitary panel 03/10/19 Range/Units 03:37 Sodium 130 L (136-145) mEq/L Potassium 3.0 L (3.5-5.1) mEq/L Chloride 96 L (98-107) mEq/L Carbon Dioxide 22 L (23-29) mEq/L BUN 51 H (8-23) mg/dL Creatinine 1.74 H (0.60-1.20) mg/dL Glucose 226 H (70-105) mg/dL Calcium 8.5 L (8.6-10.3) mg/dL Adrenal panel 03/10/19 Range/Units 03:37 Sodium 130 L (136-145) mEq/L Potassium 3.0 L (3.5-5.1) mEq/L Chloride 96 L (98-107) mEq/L Carbon Dioxide 22 L (23-29) mEq/L BUN 51 H (8-23) mg/dL Creatinine 1.74 H (0.60-1.20) mg/dL Glucose 226 H (70-105) mg/dL Calcium 8.5 L (8.6-10.3) mg/dL
[2019-03-10] MEDS: Insulin LISPRO 300 UNITS/3 ML VIAL SQ SCH ×4 (10:13→21:20)
[2019-03-10] MEDS: Nystatin POWDER 30 GM BOTTLE TP SCH ×3 (10:15→21:20)
[2019-03-10] MEDS: cefTRIAXone 2,000 MG in Water for inj. (sterile) 20 ML IVPB SCH (10:15)
--- NOTE | 2019-03-10 13:12 | Electrocardiograph Report ---
[place] [id number] Test Date: 2019-03-09 Pat Name: Mona Barrientos Department: EXAM2 Room: 3A22 Gender: F Skein Winder: : 1960 Requested By: Armen Condon Order Number: [id number] Reading MD: Jose Alfredo Mandujano Measurements Intervals [place] Rate: 100 P: 51 NM: 168 QRS: 7 QRSD: 95 T: 34 QT: 342 QTc: 442 Interpretive Statements Sinus tachycardia Low voltage, precordial leads Electronically Signed On 03-10-2019 13:11:20 EDT by Jose Alfredo Mandujano
--- NOTE | 2019-03-10 13:13 | Internal Med Progress Note ---
Hospitalist Progress Note - Encounter Date of Encounter: 03/10/19 Time of Encounter: 13:23 - Subjective Interval History: Patient was seen and examined at bedside today. In initially presented to the hospital complaining of weakness. Patient still reported weakness. Patient denied any fever and chills. Initial workup was significant for UTI and pyelo nephritis. Patient denies any back pain. - Exam Vitals: Temp Pulse Resp BP Pulse Ox 99.4 F 95 18 137/80 93 03/10/19 10:02 03/10/19 10:02 03/10/19 10:02 03/10/19 10:02 03/10/19 10:02 Exam: General: Ill-appearing and in no acute distress Cardiovascular: RRR. No murmurs. No chest wall tenderness. Lungs: Clear to auscelltation bilaterally. Regular chest rise. Abdomen: Non-tender. No rebound or gaurding. Nl bowel sounds. Extremities: No edema. 2+ pulses radial and pedal pulses Skin: No rahses, abrasions, or contusions. Nl cap refill. Psych: A&Ox3, no auditory and visual hallucination. - Assessment and Plan (1) Sepsis Current Visit: Yes Status: Acute Assessment and Plan: Patient understood to the hospital with complaint of weakness. Initial evaluation was positive for sepsis likely due to pyelonephritis. Patient had a CT abdomen and pelvis done which showed bilateral perinephric stranding more prominent on the right side. CT also showed inflammation surrounding the ureters bilaterally. Urology consult placed for mild right-sided hydronephrosis. Appreciate urology recommendation. No surgical intervention at this time. - Continue IV hydration - Continue Rocephin - Patient's initial blood culture and urine culture showed gram-negative abbe. Will await final report. (2) Pyelonephritis Current Visit: Yes Status: Acute Assessment and Plan: Management as above (3) Acute renal failure Current Visit: Yes Status: Acute Assessment and Plan: Likely likely etiology would be both prerenal plus internal in the setting of pyelonephritis and sepsis. Patient has responded well to fluid resuscitation. Creatinine is down trending to 1.7 today. We will continue IV hydration. BMP tomorrow. (4) (HFpEF) heart failure with preserved ejection fraction Current Visit: Yes Status: Acute Assessment and Plan: Hold Lasix in setting of acute renal failure (5) Elevated troponin Current Visit: Yes Status: Acute Assessment and Plan: Pt had a mild elevation of troponin in the setting of UTI. Denied any chest pain. Most likely mild elevation is due to a EVENS. EKG showed normal sinus rhythm with nonspecific T-wave abnormality. No ischemic changes noted. (6) Bipolar 1 disorder Current Visit: No Status: Acute Assessment and Plan: Continue home medications. (7) Schizophrenia in remission Current Visit: Yes Status: Acute Assessment and Plan: Patient's home medication regimen reviewed. Patient is currently on Haldol IM every other week and Invega IM every 4 weeks. Patient recently got both medication. Continue home Cogentin to avoid any extrapyramidal side effects. No signs of acute psychosis noted on exam. (8) Diabetes Current Visit: No Status: Acute Assessment and Plan: Continue sliding-scale insulin. (9) Obesity Current Visit: No Status: Chronic Assessment and Plan: BMI more than 35. Advised on diet modifications. DVT Prophylaxis: EPCD - Time Spent with Patient Total time spent is greater than 50% in coordination of care (as documented) at patient's floor/unit and/or counseling patient: 25 - 35 minutes Plan of Care Discussed with: patient Internal Medicine: Result - Labs CBC & Chem 7: 03/10/19 03:37 03/10/19 03:37 Labs: Short CBC 03/10/19 Range/Units 03:37 WBC 11.1 (4.3-11.1) K/mcL Hgb 10.1 L (11.5-15.4) g/dL Hct 31.0 L (35.3-44.9) % Plt Count 134 L (140-400) K/mcL Neutrophils # 8.9 (1.6-8.9) K/mcL BMP 03/10/19 03:37 Sodium 130 L Potassium 3.0 L Chloride 96 L Carbon Dioxide 22 L BUN 51 H Creatinine 1.74 H Glucose 226 H Calcium 8.5 L Cardiac Enzymes 03/09/19 03/09/19 Range/Units 15:29 22:19 Troponin I 0.08 H* 0.04 H* (< 0.04) ng/mL Consult Discharge Plan - Plan Referrals: Reynold Hamlin MD [Primary Care Provider] - (1) Sepsis Qualifiers: Sepsis type: sepsis due to unspecified organism Sepsis acute organ dysfunction status: with acute organ dysfunction Severe sepsis acute organ dysfunction type: acute renal failure Acute renal failure type: with acute tubular necrosis Severe sepsis shock status: without septic shock Qualified Code(s): A41.9 - Sepsis, unspecified organism; R65.20 - Severe sepsis without septic shock; N17.0 - Acute kidney failure with tubular necrosis (3) Acute renal failure Qualifiers: Acute renal failure type: unspecified Qualified Code(s): N17.9 - Acute kidney failure, unspecified (4) (HFpEF) heart failure with preserved ejection fraction Qualifiers: Heart failure chronicity: chronic Qualified Code(s): I50.32 - Chronic diastolic (congestive) heart failure (8) Diabetes Qualifiers: Diabetes mellitus type: type 2 Diabetes mellitus machine long goods helper insulin use: without machine long goods helper use Diabetes mellitus complication status: without complication Qualified Code(s): E11.9 - Type 2 diabetes mellitus without complications (9) Obesity Qualifiers: Obesity type: due to excess calories Qualified Code(s): E66.09 - Other obesity due to excess calories
[2019-03-10] MEDS: 0.9 % Sodium Chloride 1,000 ML IVC SCH (14:31)
[2019-03-11] MEDS: 0.9 % Sodium Chloride 1,000 ML IVC SCH (00:41)
[2019-03-11 04:24] LABS: Hematocrit 31.2 % (35.3-44.9); Hemoglobin 10.3 g/dL (11.5-15.4); Mean Corpuscular Hemoglobin 29.3 pg (28.0-33.3); Mean Corpuscular Volume 88.6 fL (83.0-100.0); Mean Platelet Volume 11.2 fL (9.4-12.4); Platelet Count 169 K/mcL (140-400); Red Blood Count 3.52 M/mcL (3.82-4.97); Red Cell Distribution Width 13.9 % (11.5-14.5); White Blood Count 13.6 K/mcL (4.3-11.1)
[2019-03-11 04:40] LABS: Calcium 8.7 mg/dL (8.6-10.3); Potassium 3.2 mEq/L (3.5-5.1)
[2019-03-11 05:34] LABS: Lymphocytes # 1.1 K/mcL (0.6-4.6); Monocytes # 0.8 K/mcL (0.0-1.3); Neutrophils # 11.7 K/mcL (1.6-8.9); Platelet Estimate Normal (Normal)
[2019-03-11 07:44] VITALS: BP 149/80
[2019-03-11] MEDS: Insulin LISPRO 300 UNITS/3 ML VIAL SQ SCH (08:17)
[2019-03-11] MEDS: Nystatin POWDER 30 GM BOTTLE TP SCH (08:17)
--- NOTE | 2019-03-11 08:33 | Urology Progress Note ---
<Eva Isidro N - Last Filed: 03/11/19 08:31> Date of Encounter: 03/11/19 Time of Encounter: 08:20 - Assessment and Plan (1) EVENS (acute kidney injury) Status: Acute Assessment and plan: Patient is a 58-year-old female who presents with bilateral pyelonephritis and acute kidney injury. Renal function on admission was severely compromised with a GFR of 18. GFR is improved to 49. (2) Bilateral hydronephrosis Status: Acute Assessment and plan: Patient is a 58-year-old female who presents with bilateral hydronephrosis. Pyelonephritis is resolving, and patient is aware she will require an outpatient renal ultrasound in approximately 3-4 weeks prior to her follow-up appointment with Dr. Rasmussen. (3) Pyelonephritis Status: Acute Assessment and plan: Patient is a 58-year-old female who presents with bilateral pyelonephritis. Blood and urine cultures have been positive for pansensitive Escherichia coli, and patient is receiving IV Rocephin. Vital signs are stable and afebrile. White blood cell count and renal function are improved. At this time, urology will sign off with the anticipation of an outpatient follow-up within 3-4 weeks of discharge. (4) Sepsis Status: Acute Assessment and plan: Patient is a 58-year-old female who presents with Escherichia coli urosepsis. Patient has received IV Rocephin. Urology recommended additional 14 days of oral culture sensitive antibiotics upon discharge. Qualifiers: Sepsis type: Escherichia coli Sepsis acute organ dysfunction status: with acute organ dysfunction Severe sepsis acute organ dysfunction type: acute renal failure Acute renal failure type: with acute tubular necrosis Severe sepsis shock status: without septic shock Qualified Code(s): A41.51 - Sepsis due to Escherichia coli [E. coli]; R65.20 - Severe sepsis without septic shock; N17.0 - Acute kidney failure with tubular necrosis Progress Note Subjective: no new complaints, feels better Narrative: Patient seen and examined sitting upright in chair in no apparent distress. Patient reports voiding well without difficulty, and she is tolerating normal diet without nausea or vomiting. Patient denies any fever, chills or flank pain. Objective Initial Vital Signs Temp Pulse Resp BP Pulse Ox 98.7 F 100 20 112/60 93 03/09/19 06:52 03/09/19 06:52 03/09/19 06:52 03/09/19 06:52 03/09/19 06:52 - General physical appearance Present: well developed, no distress, no pain, obese - Respiratory Present: normal expansion, normal respiratory effort - Abdomen Present: soft, non tender. Absent: distended - Genitourinary Present: other (No CVAT) - Integumentary Present: no rash, no abnormal pigmentation - Musculoskeletal Present: normal posture - Psychiatric Present: oriented to time, oriented to person, oriented to place, speech is normal, memory intact - Labs 03/11/19 03:40 03/11/19 03:40 Diabetes panel 03/11/19 Range/Units 03:40 Sodium 132 L (136-145) mEq/L Potassium 3.2 L (3.5-5.1) mEq/L Chloride 100 (98-107) mEq/L Carbon Dioxide 18 L (23-29) mEq/L BUN 28 H (8-23) mg/dL Creatinine 1.13 (0.60-1.20) mg/dL Glucose 217 H (70-105) mg/dL Calcium 8.7 (8.6-10.3) mg/dL Calcium panel 03/11/19 Range/Units 03:40 Calcium 8.7 (8.6-10.3) mg/dL Pituitary panel 03/11/19 Range/Units 03:40 Sodium 132 L (136-145) mEq/L Potassium 3.2 L (3.5-5.1) mEq/L Chloride 100 (98-107) mEq/L Carbon Dioxide 18 L (23-29) mEq/L BUN 28 H (8-23) mg/dL Creatinine 1.13 (0.60-1.20) mg/dL Glucose 217 H (70-105) mg/dL Calcium 8.7 (8.6-10.3) mg/dL Adrenal panel 03/11/19 Range/Units 03:40 Sodium 132 L (136-145) mEq/L Potassium 3.2 L (3.5-5.1) mEq/L Chloride 100 (98-107) mEq/L Carbon Dioxide 18 L (23-29) mEq/L BUN 28 H (8-23) mg/dL Creatinine 1.13 (0.60-1.20) mg/dL Glucose 217 H (70-105) mg/dL Calcium 8.7 (8.6-10.3) mg/dL Consult Discharge Plan - Plan Referrals: Peter Rasmussen MD [Partnered Physician] - 04/03/19 9:30 am Reynold Hamlin MD [Primary Care Provider] - Prescriptions: Levofloxacin [Levaquin] 750 mg PO DAILY 7 Days #7 tablet Levofloxacin [Levaquin] 750 mg PO DAILY 7 Days #7 tablet Prescription Printed <Peter Rasmussen - Last Filed: 03/11/19 16:08> Date of Encounter: 03/11/19 - Assessment and Plan (1) Bilateral hydronephrosis Status: Acute (2) EVENS (acute kidney injury) Status: Acute (3) Pyelonephritis Status: Acute Progress Note Narrative: Patient left before being seen. I agree with the plan as written by Eva Isidro. Objective Initial Vital Signs Temp Pulse Resp BP Pulse Ox 98.7 F 100 20 112/60 93 03/09/19 06:52 03/09/19 06:52 03/09/19 06:52 03/09/19 06:52 03/09/19 06:52 - Labs 03/11/19 03:40 03/11/19 03:40 Diabetes panel 03/11/19 Range/Units 03:40 Sodium 132 L (136-145) mEq/L Potassium 3.2 L (3.5-5.1) mEq/L Chloride 100 (98-107) mEq/L Carbon Dioxide 18 L (23-29) mEq/L BUN 28 H (8-23) mg/dL Creatinine 1.13 (0.60-1.20) mg/dL Glucose 217 H (70-105) mg/dL Calcium 8.7 (8.6-10.3) mg/dL Calcium panel 03/11/19 Range/Units 03:40 Calcium 8.7 (8.6-10.3) mg/dL Pituitary panel 03/11/19 Range/Units 03:40 Sodium 132 L (136-145) mEq/L Potassium 3.2 L (3.5-5.1) mEq/L Chloride 100 (98-107) mEq/L Carbon Dioxide 18 L (23-29) mEq/L BUN 28 H (8-23) mg/dL Creatinine 1.13 (0.60-1.20) mg/dL Glucose 217 H (70-105) mg/dL Calcium 8.7 (8.6-10.3) mg/dL Adrenal panel 03/11/19 Range/Units 03:40 Sodium 132 L (136-145) mEq/L Potassium 3.2 L (3.5-5.1) mEq/L Chloride 100 (98-107) mEq/L Carbon Dioxide 18 L (23-29) mEq/L BUN 28 H (8-23) mg/dL Creatinine 1.13 (0.60-1.20) mg/dL Glucose 217 H (70-105) mg/dL Calcium 8.7 (8.6-10.3) mg/dL
--- NOTE | 2019-03-11 09:37 | Discharge Summary ---
- NOTES TO OUTPATIENT PROVIDER Notes to Outpatient Provider: Patient was admitted to the hospital for pyelonephritis. Patient was placed on Rocephin. On initial evaluation patient had a bilateral hydronephrosis. Urology consult was placed. Urology did not recommend any surgical intervention. Patient's history of present illness is all at the time of discharge. Urine culture and blood culture grew Escherichia coli which was sensitive to Rocephin and levofloxacin. Patient will be discharged on additional seven-day off levofloxacin. Pt will need follow up with urology outpatient in 3-4 weeks. Patient will need ultrasound before appointment with urology. Follow-up with primary care provider within one week. Date of Encounter: 03/11/19 Time of Encounter: 09:35 - Discharge Diagnosis (1) Sepsis Priority: Primary Status: Acute Qualifiers: Sepsis type: Escherichia coli Sepsis acute organ dysfunction status: with acute organ dysfunction Severe sepsis acute organ dysfunction type: acute renal failure Acute renal failure type: with acute tubular necrosis Severe sepsis shock status: without septic shock Qualified Code(s): A41.51 - Sepsis due to Escherichia coli [E. coli]; R65.20 - Severe sepsis without septic shock; N17.0 - Acute kidney failure with tubular necrosis (2) E coli bacteremia Priority: Secondary Status: Acute (3) Pyelonephritis Priority: Secondary Status: Acute (4) Acute renal failure Priority: Secondary Status: Acute Qualifiers: Acute renal failure type: unspecified Qualified Code(s): N17.9 - Acute kidney failure, unspecified (5) (HFpEF) heart failure with preserved ejection fraction Priority: Secondary Status: Acute Qualifiers: Heart failure chronicity: chronic Qualified Code(s): I50.32 - Chronic diastolic (congestive) heart failure (6) Elevated troponin Priority: Secondary Status: Acute (7) Bipolar 1 disorder Priority: Secondary Status: Acute (8) Schizophrenia in remission Priority: Secondary Status: Acute (9) Diabetes Priority: Secondary Status: Acute Qualifiers: Diabetes mellitus type: type 2 Diabetes mellitus intermediate insulin use: without local company intermodal truck driver use Diabetes mellitus complication status: without complication Qualified Code(s): E11.9 - Type 2 diabetes mellitus without complications Hospital course: Ms. Barrientos is a 58 year old female was admitted to the hospital for pyelonephritis. Patient was placed on Rocephin. On initial evaluation patient had a bilateral hydronephrosis. Urology consult was placed. Urology did not recommend any surgical intervention. Patient's history of present illness is all at the time of discharge. Urine culture and blood culture grew Escherichia coli which was sensitive to Rocephin and levofloxacin. Patient will be discharged on additional seven-day off levofloxacin. Pt will need follow up with urology outpatient in 3-4 weeks. Patient will need ultrasound before appointment with urology. Follow-up with primary care provider within one week Discharge discussed with: patient, family, nurse, social work - Time Spent with Patient Total time spent providing and/or coordinating discharge services: 35 Time spent: Greater than 30 minutes - Discharge Medications Prescriptions: New Levofloxacin [Levaquin] 750 mg PO DAILY 7 Days #7 tablet Continued Paliperidone Palmitate [Invega Sustenna] 234 mg IM Q28D Ascorbic Acid [Vitamin C] 500 mg PO BID Benztropine [Cogentin] 1 mg PO BID Cholecalciferol (Vitamin D3) [Vitamin D3] 50,000 unit PO 2XW Escitalopram [Lexapro] 30 mg PO DAILY Exenatide Microspheres [Bydureon Pen] 2 mg SQ WE Ferrous Sulfate 325 mg PO BID Gabapentin [Neurontin] 300 mg PO BID Gabapentin [Neurontin] 600 - 900 mg PO HS Haloperidol Decanoate [Haldol Deconate] 50 mg IM Q14D Melatonin 10 mg PO HS Metformin HCl 1,000 mg PO BID Omeprazole 20 mg PO DAILY Propranolol [Inderal] 20 mg PO TID Home Medications: Ascorbic Acid [Vitamin C] 500 mg PO BID 03/10/19 [History] Benztropine [Cogentin] 1 mg PO BID 03/10/19 [History] Cholecalciferol (Vitamin D3) [Vitamin D3] 50,000 unit PO 2XW 03/10/19 [History] Escitalopram [Lexapro] 30 mg PO DAILY 03/10/19 [History] Exenatide Microspheres [Bydureon Pen] 2 mg SQ WE 03/10/19 [History] Ferrous Sulfate 325 mg PO BID 03/10/19 [History] Gabapentin [Neurontin] 300 mg PO BID 03/10/19 [History] Gabapentin [Neurontin] 600 - 900 mg PO HS 03/10/19 [History] Haloperidol Decanoate [Haldol Deconate] 50 mg IM Q14D 03/10/19 [History] Melatonin 10 mg PO HS 03/10/19 [History] Metformin HCl 1,000 mg PO BID 03/10/19 [History] Omeprazole 20 mg PO DAILY 03/10/19 [History] Paliperidone Palmitate [Invega Sustenna] 234 mg IM Q28D 03/10/19 [History] Propranolol [Inderal] 20 mg PO TID 03/10/19 [History] Levofloxacin [Levaquin] 750 mg PO DAILY 7 Days #7 tablet 03/11/19 [Rx] Allergies/Adverse Reactions: Allergy/AdvReac Type Severity Reaction Status Date / Time codeine AdvReac CONVULSIONS Verified 01/16/16 11:06 Date of admission: 03/09/19 09:59 Primary care physician: Reynold Hamlin MD Discharging clinician: Benji Wu - Constitutional Vitals: Temp Pulse Resp BP Pulse Ox 98.5 F 99 16 149/80 94 03/11/19 07:41 03/11/19 07:41 03/11/19 07:41 03/11/19 07:41 03/11/19 07:41 General appearance: Present: cooperative, A&O X 3 Exam: General: Ill-appearing and in no acute distress Cardiovascular: RRR. No murmurs. No chest wall tenderness. Lungs: Clear to auscelltation bilaterally. Regular chest rise. Abdomen: Non-tender. No rebound or gaurding. Nl bowel sounds. Extremities: No edema. 2+ pulses radial and pedal pulses Skin: No rahses, abrasions, or contusions. Nl cap refill. Psych: A&Ox3, no auditory and visual hallucination. - Patient Status Disposition: Home, Self-Care Condition: Good Overall status at discharge: patient is progressing back to baseline - Ambulatory Orders Ambulatory Orders: US retroperitoneal limited [US] Time Frame: 3 Weeks, Facility: [facility], Location: Radiology - Discharge Instructions Follow Up With: Reynold Hamlin MD [Primary Care Provider] - - Diet and Activity Activity: increase activity as tolerated Diet: advance to your usual diet, diabetic diet
[2019-03-11] MEDS: cefTRIAXone 2,000 MG in Water for inj. (sterile) 20 ML IVPB SCH (09:59)
== END 2019-03-11 11:07 | disposition home or self-care (01) | DRG 720 ==
LOC: EMEROOARM 06:49 → 3ANU 06:49 → SUATTDRO 09:59 → OBSVTOIN 09:59 → 3ANU 10:30
PROVIDERS: ADMIT Internal Medicine; ATTEND Family Medicine

== ENCOUNTER 2019-05-30 15:27 | Observation (INO) ==
[2019-05-30 16:12] LABS: Basophils % 0.3 %; Eosinophils # 0.1 K/mcL (0.0-0.6); Eosinophils % 1.5 %; Hematocrit 42.6 % (35.3-44.9); Hemoglobin 14.5 g/dL (11.5-15.4); Immature Granulocytes % 0.3 % (0-4); Lymphocytes # 1.5 K/mcL (0.6-4.6); Lymphocytes % 19.2 %; Mean Corpuscular Hemoglobin 29.3 pg (28.0-33.3); Mean Corpuscular Volume 86.1 fL (83.0-100.0); Mean Platelet Volume 10.9 fL (9.4-12.4); Monocytes # 0.6 K/mcL (0.0-1.3); Monocytes % 7.4 %; Neutrophils # 5.6 K/mcL (1.6-8.9); Platelet Count 216 K/mcL (140-400); Red Blood Count 4.95 M/mcL (3.82-4.97); Red Cell Distribution Width 13.9 % (11.5-14.5); Segmented Neutrophils % 71.3 %; White Blood Count 7.9 K/mcL (4.3-11.1)
[2019-05-30 16:31] LABS: Bilirubin,Urine Negative (Negative); Blood,Urine Negative (Negative); Clarity,Urine Clear (Clear); Color,Urine Yellow (Yellow); Glucose,Urine (UA) Normal (Normal); Ketones,Urine Negative (Negative); Leukocyte Esterase,Urine Moderate (Negative); Nitrite,Urine Negative (Negative); Protein,Urine Trace mg/dL (Neg-Trace); Specific Gravity,Urine 1.009 (1.010-1.025); Urobilinogen,Urine Normal (Normal)
[2019-05-30 16:33] LABS: Bacteria,Urine None Seen per hpf (None-Few); Hyaline Casts,Urine None Seen per lpf (None-Few); RBC,Urine 0-3 per hpf (0-3); Squamous Epithelial Cell,Urine Many per lpf (None-Few); WBC,Urine 15-30 per hpf (0-3)
[2019-05-30] MEDS ORDERED: cephALEXin 500 MG CAPSULE PO STA (16:38)
[2019-05-30 16:41] LABS: Acetaminophen < 10 mcg/mL (10-20); BUN/Creatinine Ratio 11 (6-26); Blood Urea Nitrogen 9 mg/dL (8-23); Calcium 10.9 mg/dL (8.6-10.3); Carbon Dioxide 25 mEq/L (23-29); Chloride 103 mEq/L (98-107); Ethanol < 10 mg/dL (Less than 10); Glucose 124 mg/dL (70-105); Osmolality,Calculated 286 (280-300); Potassium 3.5 mEq/L (3.5-5.1); Salicylate < 2.5 mg/dL (15.0-30.0); Sodium 138 mEq/L (136-145); eGFR For African Americans > 60 (> 60); eGFR For Non-African Americans > 60 (> 60)
[2019-05-30 16:55] LABS: Amphetamine Screen,Urine Negative ng/mL (Cutoff=1000); Barbiturate Screen,Urine Negative ng/mL (Cutoff=200); Benzodiazepines Screen,Urine Negative ng/mL (Cutoff=200); Cannabinoid Screen,Urine Negative ng/mL (Cutoff = 50); Cocaine Screen,Urine Negative ng/mL (Cutoff= 300); Opiate Screen,Urine Negative ng/mL (Cutoff=300); Phencyclidine Screen,Urine Negative ng/mL (Cutoff=25)
[2019-05-30] MEDS ORDERED: Naloxone 0.4 MG/ML INJ IVP PRN (18:16)
[2019-05-30] MEDS ORDERED: 0.9 % Sodium Chloride 1,000 ML IVC SCH (18:30)
[2019-05-30] MEDS ORDERED: Dextrose Gel 15 GM/37.5 ML TUBE PO PRN ×2 (18:32)
[2019-05-30] MEDS ORDERED: D5% in Water 1,000 ML IVC PRN (18:32)
[2019-05-30] MEDS ORDERED: *HR* Dextrose 50 % in Water (Syg) 50 ML SYRINGE IVP PRN (18:32)
[2019-05-30 19:36] LABS: Estimated Average Glucose 114 mg/dl
[2019-05-30] MEDS: cefTRIAXone 1,000 MG in Water for inj. (sterile) 10 ML IVP SCH (21:11)
[2019-05-30] MEDS: amLODIPine 5 MG TABLET PO SCH (22:39)
[2019-05-30] MEDS: Ascorbic Acid 500 MG TABLET PO SCH (22:39)
[2019-05-31 05:41] LABS: Basophils % 0.2 %; Eosinophils # 0.1 K/mcL (0.0-0.6); Eosinophils % 2.2 %; Hematocrit 39.2 % (35.3-44.9); Hemoglobin 13.1 g/dL (11.5-15.4); Immature Granulocytes % 0.5 % (0-4); Lymphocytes # 1.5 K/mcL (0.6-4.6); Lymphocytes % 23.8 %; Mean Corpuscular HGB Conc 33.4 g/dL (31.6-35.5); Mean Corpuscular Hemoglobin 29.1 pg (28.0-33.3); Mean Corpuscular Volume 87.1 fL (83.0-100.0); Mean Platelet Volume 11.2 fL (9.4-12.4); Monocytes # 0.6 K/mcL (0.0-1.3); Monocytes % 9.1 %; Neutrophils # 4.1 K/mcL (1.6-8.9); Platelet Count 180 K/mcL (140-400); Red Cell Distribution Width 13.8 % (11.5-14.5); Segmented Neutrophils % 64.2 %; White Blood Count 6.4 K/mcL (4.3-11.1)
[2019-05-31 05:56] LABS: BUN/Creatinine Ratio 8 (6-26); Blood Urea Nitrogen 9 mg/dL (8-23); Calcium 10.3 mg/dL (8.6-10.3); Carbon Dioxide 28 mEq/L (23-29); Chloride 104 mEq/L (98-107); Glucose 105 mg/dL (70-105); Osmolality,Calculated 289 (280-300); Potassium 2.9 mEq/L (3.5-5.1); Sodium 140 mEq/L (136-145); eGFR For African Americans > 60 (> 60); eGFR For Non-African Americans 50 (> 60)
[2019-05-31] MEDS ORDERED: *HR* Heparin 5,000 UNIT/ML VIAL SQ SCH (06:00)
[2019-05-31] MEDS: Insulin LISPRO 300 UNITS/3 ML VIAL SQ SCH ×2 (07:28→11:32)
[2019-05-31] MEDS ORDERED: Potassium Chloride 20 MEQ, Lidocaine 1% 2 ML in 0.9 % Sodium Chloride 250 ML IVPB ONE (07:39)
[2019-05-31] MEDS: Ascorbic Acid 500 MG TABLET PO SCH (07:41)
[2019-05-31] MEDS: cefTRIAXone 1,000 MG in Water for inj. (sterile) 10 ML IVP SCH (07:42)
[2019-05-31] MEDS: amLODIPine 5 MG TABLET PO SCH (07:42)
[2019-05-31] MEDS: Potassium Chloride Elixir 20 MEQ/15 ML UDC PO SCH ×2 (08:56→11:34)
[2019-05-31] MEDS ORDERED: Gabapentin 300 MG CAPSULE PO SCH (09:00)
[2019-05-31 15:06] VITALS: BP 134/82
[2019-05-31] MEDS ORDERED: Melatonin 3 MG TABLET PO SCH (21:00)
== END 2019-05-31 16:54 | disposition other institution (70) ==
LOC: EMEROOARM 15:27 → 3BNU 15:27
PROVIDERS: ADMIT Internal Medicine; ATTEND Internal Medicine

== ENCOUNTER 2019-05-31 16:50 | Inpatient (IN) ==
[2019-05-31] MEDS ORDERED: Haloperidol Lactate 5 MG/ML VIAL IM PRN (17:04)
[2019-05-31] MEDS ORDERED: *HR* LORazepam 1 MG TABLET PO PRN (17:04)
[2019-05-31] MEDS ORDERED: Mag Hydrox/Al Hydrox/Simeth 30 ML UDC PO PRN (17:04)
[2019-05-31] MEDS ORDERED: *HR* LORazepam 2 MG/ML VIAL IM PRN (17:04)
[2019-05-31] MEDS ORDERED: MOM Conc 10 ML UD.LIQ PO PRN (17:04)
[2019-05-31] MEDS ORDERED: Dextrose Gel 15 GM/37.5 ML TUBE PO PRN ×2 (17:08)
[2019-05-31] MEDS ORDERED: NON-FORMULARY MEDICATION 1 EACH EACH (Paliperidone Palmitate [Invega Sustenna] 234 MG) IM SCH (17:15)
[2019-05-31] MEDS ORDERED: Haloperidol Decanoate 50 MG/ML VIAL IM SCH (17:15)
[2019-05-31] MEDS: Melatonin 3 MG TABLET PO SCH (20:52)
[2019-05-31] MEDS: hydrOXYzine pamoate 25 MG CAPSULE PO PRN (20:52)
[2019-05-31] MEDS: *HR* Metformin 500 MG TABLET PO SCH (20:52)
[2019-05-31] MEDS: traZODone 50 MG TABLET PO PRN (20:53)
[2019-05-31] MEDS: Ascorbic Acid 500 MG TABLET PO SCH (20:53)
[2019-05-31] MEDS: Gabapentin 300 MG CAPSULE PO SCH (20:53)
[2019-05-31] MEDS: Insulin LISPRO 300 UNITS/3 ML VIAL SQ SCH (22:53)
[2019-06-01] MEDS ORDERED: levoFLOXacin 750 MG TABLET PO SCH (09:00)
[2019-06-01] MEDS: Insulin LISPRO 300 UNITS/3 ML VIAL SQ SCH ×4 (09:10→20:33)
[2019-06-01] MEDS: Cholecalciferol (D-3) 1,000 UNIT (25MCG) TABLET PO SCH (09:11)
[2019-06-01] MEDS: *HR* Metformin 500 MG TABLET PO SCH ×2 (09:12→20:02)
[2019-06-01] MEDS: Cefdinir 300 MG CAPSULE PO SCH (09:13)
[2019-06-01] MEDS: Gabapentin 300 MG CAPSULE PO SCH ×2 (09:13→20:02)
[2019-06-01] MEDS: Ascorbic Acid 500 MG TABLET PO SCH ×2 (09:14→20:02)
[2019-06-01] MEDS: hydrOXYzine pamoate 25 MG CAPSULE PO PRN (20:02)
[2019-06-01] MEDS: traZODone 50 MG TABLET PO PRN (20:02)
[2019-06-01] MEDS: Melatonin 3 MG TABLET PO SCH (20:02)
[2019-06-02] MEDS: *HR* Metformin 500 MG TABLET PO SCH ×2 (08:49→20:14)
[2019-06-02] MEDS: Gabapentin 300 MG CAPSULE PO SCH ×2 (08:50→20:14)
[2019-06-02] MEDS: Ascorbic Acid 500 MG TABLET PO SCH ×2 (08:50→20:14)
[2019-06-02] MEDS: Cholecalciferol (D-3) 1,000 UNIT (25MCG) TABLET PO SCH (08:50)
[2019-06-02] MEDS: Cefdinir 300 MG CAPSULE PO SCH (08:51)
[2019-06-02] MEDS: Insulin LISPRO 300 UNITS/3 ML VIAL SQ SCH ×4 (08:54→21:47)
[2019-06-02] MEDS: Ibuprofen 400 MG TABLET PO PRN ×2 (12:07→20:15)
[2019-06-02] MEDS: traZODone 50 MG TABLET PO PRN (20:14)
[2019-06-02] MEDS: hydrOXYzine pamoate 25 MG CAPSULE PO PRN (20:14)
[2019-06-02] MEDS: Melatonin 3 MG TABLET PO SCH (20:14)
[2019-06-03] MEDS: Gabapentin 300 MG CAPSULE PO SCH (08:25)
[2019-06-03] MEDS: *HR* Metformin 500 MG TABLET PO SCH (08:25)
[2019-06-03] MEDS: Ascorbic Acid 500 MG TABLET PO SCH (08:25)
[2019-06-03] MEDS: Cholecalciferol (D-3) 1,000 UNIT (25MCG) TABLET PO SCH (08:25)
[2019-06-03] MEDS: Insulin LISPRO 300 UNITS/3 ML VIAL SQ SCH ×3 (08:28→16:32)
[2019-06-03 08:42] VITALS: BP 126/79
[2019-06-03 11:14] LABS: Basophils % 0.1 %; Eosinophils # 0.2 K/mcL (0.0-0.6); Eosinophils % 2.2 %; Hematocrit 43.3 % (35.3-44.9); Hemoglobin 14.2 g/dL (11.5-15.4); Immature Granulocytes % 0.3 % (0-4); Lymphocytes # 1.1 K/mcL (0.6-4.6); Mean Corpuscular HGB Conc 32.8 g/dL (31.6-35.5); Mean Corpuscular Hemoglobin 29.3 pg (28.0-33.3); Mean Corpuscular Volume 89.3 fL (83.0-100.0); Mean Platelet Volume 11.2 fL (9.4-12.4); Monocytes # 0.5 K/mcL (0.0-1.3); Monocytes % 7.6 %; Neutrophils # 5.3 K/mcL (1.6-8.9); Platelet Count 191 K/mcL (140-400); Red Blood Count 4.85 M/mcL (3.82-4.97); Segmented Neutrophils % 74.8 %; White Blood Count 7.1 K/mcL (4.3-11.1)
[2019-06-03 11:15] LABS: Estimated Average Glucose 117 mg/dl
[2019-06-03 11:32] LABS: Alanine Aminotransferase 29 Units/L (7-52); Albumin 4.1 g/dL (3.5-5.7); Albumin/Globulin Ratio 1.4 (1.1-2.2); Alkaline Phosphatase 64 Units/L (34-104); Aspartate Amino Transferase 21 Units/L (13-39); BUN/Creatinine Ratio 19 (6-26); Bilirubin,Total 0.4 mg/dL (0.3-1.0); Blood Urea Nitrogen 20 mg/dL (8-23); Calcium 11.5 mg/dL (8.6-10.3); Carbon Dioxide 32 mEq/L (23-29); Chloride 100 mEq/L (98-107); Chol/HDL Ratio 4.4 (0-4.9); Cholesterol 170 mg/dL (< 200); Globulin 2.9 g/dL (2.4-3.5); Glucose 106 mg/dL (70-105); HDL Cholesterol 39 mg/dL (40-59); LDL Cholesterol,Calculated 90 mg/dL (0-99); Osmolality,Calculated 285 (280-300); Potassium 4.3 mEq/L (3.5-5.1); Sodium 136 mEq/L (136-145); Triglycerides 205 mg/dL (< 150); eGFR For African Americans > 60 (> 60); eGFR For Non-African Americans 55 (> 60)
[2019-06-04] MEDS ORDERED: (Exenatide Microspheres [Bydureon Pen] 2 MG) SQ SCH (09:00)
== END 2019-06-03 16:40 | disposition home or self-care (01) | DRG 750 ==
LOC: SUATTDRO 16:50 → 1ANU 16:50
PROVIDERS: ADMIT Psychiatry & Neurology Psychiatry; ATTEND Psychiatry & Neurology Psychiatry

== ENCOUNTER 2019-06-19 12:25 | Inpatient (IN) ==
[2019-06-19 13:27] LABS: Basophils % 0.1 %; Eosinophils % 0.4 %; Hematocrit 43.9 % (35.3-44.9); Hemoglobin 14.5 g/dL (11.5-15.4); Immature Granulocytes % 0.4 % (0-4); Lymphocytes # 1.1 K/mcL (0.6-4.6); Lymphocytes % 13.1 %; Mean Corpuscular Hemoglobin 29.1 pg (28.0-33.3); Monocytes # 0.4 K/mcL (0.0-1.3); Monocytes % 4.5 %; Neutrophils # 6.9 K/mcL (1.6-8.9); Platelet Count 189 K/mcL (140-400); Red Blood Count 4.99 M/mcL (3.82-4.97); Red Cell Distribution Width 13.7 % (11.5-14.5); Segmented Neutrophils % 81.5 %; White Blood Count 8.5 K/mcL (4.3-11.1)
[2019-06-19 13:42] LABS: Acetaminophen < 10 mcg/mL (10-20); BUN/Creatinine Ratio 10 (6-26); Blood Urea Nitrogen 9 mg/dL (8-23); Calcium 10.7 mg/dL (8.6-10.3); Carbon Dioxide 24 mEq/L (23-29); Chloride 101 mEq/L (98-107); Ethanol < 10 mg/dL (Less than 10); Glucose 123 mg/dL (70-105); Osmolality,Calculated 278 (280-300); Potassium 3.8 mEq/L (3.5-5.1); Salicylate < 2.5 mg/dL (15.0-30.0); Sodium 134 mEq/L (136-145); eGFR For African Americans > 60 (> 60); eGFR For Non-African Americans > 60 (> 60)
[2019-06-19 13:47] LABS: Bilirubin,Urine Negative (Negative); Blood,Urine Negative (Negative); Clarity,Urine Clear (Clear); Color,Urine Yellow (Yellow); Glucose,Urine (UA) Normal (Normal); Ketones,Urine Negative (Negative); Leukocyte Esterase,Urine Trace (Negative); Nitrite,Urine Negative (Negative); Protein,Urine Negative (Neg-Trace); Specific Gravity,Urine 1.006 (1.010-1.025); Urobilinogen,Urine Normal (Normal)
[2019-06-19 13:50] LABS: Bacteria,Urine None Seen per hpf (None-Few); Hyaline Casts,Urine None Seen per lpf (None-Few); RBC,Urine 0-3 per hpf (0-3); Squamous Epithelial Cell,Urine Many per lpf (None-Few); WBC,Urine 0-3 per hpf (0-3)
[2019-06-19 14:04] LABS: Amphetamine Screen,Urine Negative ng/mL (Cutoff=1000); Barbiturate Screen,Urine Negative ng/mL (Cutoff=200); Benzodiazepines Screen,Urine Negative ng/mL (Cutoff=200); Cannabinoid Screen,Urine Negative ng/mL (Cutoff = 50); Cocaine Screen,Urine Negative ng/mL (Cutoff= 300); Opiate Screen,Urine Negative ng/mL (Cutoff=300); Phencyclidine Screen,Urine Negative ng/mL (Cutoff=25)
[2019-06-19] MEDS ORDERED: *HR* LORazepam 2 MG/ML VIAL IM PRN (15:55)
[2019-06-19] MEDS ORDERED: Mag Hydrox/Al Hydrox/Simeth 30 ML UDC PO PRN (15:55)
[2019-06-19] MEDS ORDERED: Ibuprofen 400 MG TABLET PO PRN (15:55)
[2019-06-19] MEDS ORDERED: MOM Conc 10 ML UD.LIQ PO PRN (15:55)
[2019-06-19] MEDS ORDERED: Haloperidol Lactate 5 MG/ML VIAL IM PRN (15:55)
[2019-06-19] MEDS ORDERED: NON-FORMULARY MEDICATION 1 EACH EACH (Exenatide Microspheres [Bydureon Pen] 2 MG) SQ SCH (18:30)
[2019-06-19] MEDS ORDERED: (Paliperidone Palmitate [Invega Sustenna] 234 MG) IM SCH (18:30)
[2019-06-19] MEDS: Melatonin 3 MG TABLET PO SCH (20:53)
[2019-06-19] MEDS: Gabapentin 300 MG CAPSULE PO SCH (20:54)
[2019-06-19] MEDS: Ascorbic Acid 500 MG TABLET PO SCH (20:54)
[2019-06-20] MEDS: *HR* Metformin 500 MG TABLET PO SCH ×2 (08:57→17:03)
[2019-06-20] MEDS: Ascorbic Acid 500 MG TABLET PO SCH ×2 (08:58→21:11)
[2019-06-20] MEDS: Gabapentin 300 MG CAPSULE PO SCH ×3 (08:58→21:11)
[2019-06-20] MEDS: Melatonin 3 MG TABLET PO SCH (21:11)
[2019-06-20] MEDS: traZODone 50 MG TABLET PO PRN (21:57)
[2019-06-20] MEDS: hydrOXYzine pamoate 25 MG CAPSULE PO PRN (21:57)
[2019-06-21] MEDS: *HR* Metformin 500 MG TABLET PO SCH ×2 (08:56→16:23)
[2019-06-21] MEDS: Gabapentin 300 MG CAPSULE PO SCH ×3 (08:56→21:25)
[2019-06-21] MEDS: Ascorbic Acid 500 MG TABLET PO SCH ×2 (08:57→21:24)
[2019-06-21] MEDS: Ergocalciferol (VIT D2) 50,000 UNIT (1.25MG) CAP PO SCH (10:08)
[2019-06-21] MEDS: Melatonin 3 MG TABLET PO SCH (21:24)
[2019-06-21] MEDS: traZODone 50 MG TABLET PO PRN (21:25)
[2019-06-21] MEDS: hydrOXYzine pamoate 25 MG CAPSULE PO PRN (21:25)
[2019-06-22] MEDS: *HR* Metformin 500 MG TABLET PO SCH ×2 (09:08→16:35)
[2019-06-22] MEDS: Ascorbic Acid 500 MG TABLET PO SCH ×2 (09:08→21:27)
[2019-06-22] MEDS: Gabapentin 300 MG CAPSULE PO SCH ×3 (09:10→21:26)
[2019-06-22] MEDS: hydrOXYzine pamoate 25 MG CAPSULE PO PRN (21:26)
[2019-06-22] MEDS: Melatonin 3 MG TABLET PO SCH (21:26)
[2019-06-22] MEDS: traZODone 50 MG TABLET PO PRN (21:27)
[2019-06-23] MEDS: *HR* Metformin 500 MG TABLET PO SCH ×2 (08:53→16:06)
[2019-06-23] MEDS: Gabapentin 300 MG CAPSULE PO SCH ×3 (08:54→21:00)
[2019-06-23] MEDS: Ascorbic Acid 500 MG TABLET PO SCH ×2 (08:54→20:58)
[2019-06-23] MEDS: Ergocalciferol (VIT D2) 50,000 UNIT (1.25MG) CAP PO SCH (12:59)
[2019-06-23] MEDS: Melatonin 3 MG TABLET PO SCH (20:57)
[2019-06-23] MEDS: hydrOXYzine pamoate 25 MG CAPSULE PO PRN (20:59)
[2019-06-23] MEDS: traZODone 50 MG TABLET PO PRN (20:59)
[2019-06-24] MEDS: Ascorbic Acid 500 MG TABLET PO SCH ×2 (08:20→21:14)
[2019-06-24] MEDS: Gabapentin 300 MG CAPSULE PO SCH ×3 (08:20→21:14)
[2019-06-24] MEDS: *HR* Metformin 500 MG TABLET PO SCH ×2 (08:20→16:44)
[2019-06-24] MEDS: hydrOXYzine pamoate 25 MG CAPSULE PO PRN (21:14)
[2019-06-24] MEDS: Melatonin 3 MG TABLET PO SCH (21:14)
[2019-06-24] MEDS: traZODone 50 MG TABLET PO PRN (21:15)
[2019-06-25] MEDS: Ascorbic Acid 500 MG TABLET PO SCH ×2 (08:58→20:41)
[2019-06-25] MEDS: *HR* Metformin 500 MG TABLET PO SCH ×2 (08:58→17:28)
[2019-06-25] MEDS: Gabapentin 300 MG CAPSULE PO SCH ×3 (08:58→20:41)
[2019-06-25] MEDS: Melatonin 3 MG TABLET PO SCH (20:41)
[2019-06-25] MEDS: traZODone 50 MG TABLET PO PRN (20:42)
[2019-06-26] MEDS: Gabapentin 300 MG CAPSULE PO SCH ×3 (08:32→20:25)
[2019-06-26] MEDS: Ascorbic Acid 500 MG TABLET PO SCH ×2 (08:32→20:26)
[2019-06-26] MEDS: *HR* Metformin 500 MG TABLET PO SCH ×2 (08:32→17:15)
[2019-06-26] MEDS: Exenatide Microspheres [Bydureon Pen] 2 MG SQ SCH (10:15)
[2019-06-26] MEDS: Melatonin 3 MG TABLET PO SCH (20:25)
[2019-06-26] MEDS: traZODone 50 MG TABLET PO PRN (20:25)
[2019-06-26] MEDS: hydrOXYzine pamoate 25 MG CAPSULE PO PRN (20:27)
[2019-06-27] MEDS: *HR* Metformin 500 MG TABLET PO SCH ×2 (08:34→16:38)
[2019-06-27] MEDS: Ascorbic Acid 500 MG TABLET PO SCH ×2 (08:35→20:45)
[2019-06-27] MEDS: Gabapentin 300 MG CAPSULE PO SCH ×3 (08:35→20:44)
[2019-06-27] MEDS: *HR* LORazepam 1 MG TABLET PO PRN (11:49)
[2019-06-27] MEDS: traZODone 50 MG TABLET PO PRN (20:44)
[2019-06-27] MEDS: Melatonin 3 MG TABLET PO SCH (20:44)
[2019-06-27] MEDS: hydrOXYzine pamoate 25 MG CAPSULE PO PRN (20:45)
[2019-06-28] MEDS: Ascorbic Acid 500 MG TABLET PO SCH ×2 (08:31→21:13)
[2019-06-28] MEDS: *HR* Metformin 500 MG TABLET PO SCH ×2 (08:32→17:11)
[2019-06-28] MEDS: Gabapentin 300 MG CAPSULE PO SCH ×3 (08:32→21:14)
[2019-06-28] MEDS: Ergocalciferol (VIT D2) 50,000 UNIT (1.25MG) CAP PO SCH (08:35)
[2019-06-28] MEDS: *HR* LORazepam 1 MG TABLET PO PRN ×2 (09:22→16:30)
[2019-06-28] MEDS: hydrOXYzine pamoate 25 MG CAPSULE PO PRN (21:13)
[2019-06-28] MEDS: Melatonin 3 MG TABLET PO SCH (21:13)
[2019-06-28] MEDS: traZODone 50 MG TABLET PO PRN (21:13)
[2019-06-29] MEDS: *HR* Metformin 500 MG TABLET PO SCH ×2 (10:43→17:39)
[2019-06-29] MEDS: Gabapentin 300 MG CAPSULE PO SCH ×3 (10:45→22:06)
[2019-06-29] MEDS: Ascorbic Acid 500 MG TABLET PO SCH ×2 (10:46→22:07)
[2019-06-29] MEDS: *HR* LORazepam 1 MG TABLET PO PRN ×2 (12:20→17:39)
[2019-06-29] MEDS: Melatonin 3 MG TABLET PO SCH (22:06)
[2019-06-29] MEDS: hydrOXYzine pamoate 25 MG CAPSULE PO PRN (22:07)
[2019-06-29] MEDS: traZODone 50 MG TABLET PO PRN (22:07)
[2019-06-30] MEDS: *HR* Metformin 500 MG TABLET PO SCH ×2 (09:00→17:15)
[2019-06-30] MEDS: Gabapentin 300 MG CAPSULE PO SCH ×3 (09:01→20:32)
[2019-06-30] MEDS: Ascorbic Acid 500 MG TABLET PO SCH ×2 (09:01→20:32)
[2019-06-30] MEDS: Ergocalciferol (VIT D2) 50,000 UNIT (1.25MG) CAP PO SCH (09:02)
[2019-06-30] MEDS: *HR* LORazepam 1 MG TABLET PO PRN (11:39)
[2019-06-30] MEDS: Melatonin 3 MG TABLET PO SCH (20:32)
[2019-06-30] MEDS: traZODone 50 MG TABLET PO PRN (20:32)
[2019-06-30] MEDS: hydrOXYzine pamoate 25 MG CAPSULE PO PRN (20:32)
[2019-07-01] MEDS: Ascorbic Acid 500 MG TABLET PO SCH ×2 (08:10→20:59)
[2019-07-01] MEDS: Gabapentin 300 MG CAPSULE PO SCH ×3 (08:11→20:58)
[2019-07-01] MEDS: *HR* Metformin 500 MG TABLET PO SCH ×2 (08:11→16:53)
[2019-07-01] MEDS: *HR* LORazepam 1 MG TABLET PO PRN (13:05)
[2019-07-01] MEDS: traZODone 50 MG TABLET PO PRN (20:58)
[2019-07-01] MEDS: Melatonin 3 MG TABLET PO SCH (20:59)
[2019-07-01] MEDS: hydrOXYzine pamoate 25 MG CAPSULE PO PRN (20:59)
[2019-07-02] MEDS: *HR* Metformin 500 MG TABLET PO SCH ×2 (08:37→17:10)
[2019-07-02] MEDS: Gabapentin 300 MG CAPSULE PO SCH ×3 (08:38→20:49)
[2019-07-02] MEDS: Ascorbic Acid 500 MG TABLET PO SCH ×2 (10:32→20:50)
[2019-07-02] MEDS: *HR* LORazepam 1 MG TABLET PO PRN (11:59)
[2019-07-02] MEDS: hydrOXYzine pamoate 25 MG CAPSULE PO PRN (20:49)
[2019-07-02] MEDS: Melatonin 3 MG TABLET PO SCH (20:50)
[2019-07-02] MEDS: traZODone 50 MG TABLET PO PRN (20:53)
[2019-07-03] MEDS: Gabapentin 300 MG CAPSULE PO SCH ×3 (08:50→21:23)
[2019-07-03] MEDS: *HR* Metformin 500 MG TABLET PO SCH ×2 (08:51→16:55)
[2019-07-03] MEDS: Ascorbic Acid 500 MG TABLET PO SCH ×2 (08:51→21:23)
[2019-07-03] MEDS: *HR* LORazepam 1 MG TABLET PO PRN ×2 (09:31→14:41)
[2019-07-03] MEDS: Exenatide Microspheres [Bydureon Pen] 2 MG SQ SCH (09:56)
[2019-07-03] MEDS: hydrOXYzine pamoate 25 MG CAPSULE PO PRN (21:23)
[2019-07-03] MEDS: traZODone 50 MG TABLET PO PRN (21:23)
[2019-07-03] MEDS: Melatonin 3 MG TABLET PO SCH (21:23)
[2019-07-04] MEDS: Ascorbic Acid 500 MG TABLET PO SCH (08:04)
[2019-07-04] MEDS: *HR* Metformin 500 MG TABLET PO SCH (08:04)
[2019-07-04] MEDS: Gabapentin 300 MG CAPSULE PO SCH (08:04)
[2019-07-04 09:10] VITALS: BP 110/80
[2019-07-04] MEDS ORDERED: *HR* LORazepam 1 MG TABLET PO ONE (10:47)
[2019-07-04] MEDS: hydrOXYzine pamoate 25 MG CAPSULE PO PRN ×2 (10:52→15:16)
[2019-07-04] MEDS: *HR* LORazepam 1 MG TABLET PO PRN (10:52)
[2019-07-11] MEDS ORDERED: (Paliperidone Palmitate [Invega Sustenna] 234 MG) IM SCH (09:00)
== END 2019-07-04 16:00 | disposition other institution (70) | DRG 750 ==
LOC: EMEROOARM 12:25 → SUATTDRO 15:29 → 1ANU 15:29
PROVIDERS: ADMIT Psychiatry & Neurology Psychiatry; ATTEND Psychiatry & Neurology Forensic Psychiatry